=== PATIENT | female | born 1955 | race Caucasian/White ===

== ENCOUNTER 2023-12-21 17:43 | Emergency (ER) | payer BC, SELFPAY ==
[2023-12-21 18:04] VITALS: BP 172/97; PULSE 100; RESP 18; TEMP 36.6; O2SAT 98
--- NOTE | 2023-12-21 18:26 | ED.URI ---
HPI - URI/Sore Throat General Chief Complaint: Upper Respiratory Infection Stated Complaint: Upper Respiratory Symptoms Time Seen by Provider: 12/21/23 18:26 Source: patient, RN notes reviewed and old records reviewed Mode of arrival: ambulatory Limitations: no limitations History of Present Illness HPI Narrative: 68-year-old female to [facility] for complaint of nasal congestion and nonproductive cough for 3 days and right ear pain radiating to right jaw that started this morning. Patient denies fever, nausea, vomiting, diarrhea. patient has attempted to treat at with qfck-pox-xjmrbtz medications without relief. Patient endorses that she has always taken an vkfx-ajd-wrfyrdf allergy medication daily and that she recently stopped. Patient able to tolerate fluids by mouth. Related Data Home Medications Medication Instructions Recorded Confirmed prednisone 1 mg tablet 1 mg PO DAILY 12/21/23 12/21/23 Allergies Allergy/AdvReac Type Severity Reaction Status Date / Time aspirin Allergy Itching Verified 12/21/23 18:08 Penicillins Allergy Unknown Verified 12/21/23 18:08 Review of Systems Review of Systems: All systems reviewed & are unremarkable except as noted in HPI and below Constitutional: Constitutional: Reports as per HPI, Denies body ache(s), Denies chills and Denies fever(s) Eyes: Eyes: Reports no additional eye complaints ENT: Reports as per HPI, Reports otalgia ( Right), Reports facial pain ( right; radiating from here) and Reports nasal congestion Cardiovascular: Cardiovascular: Reports no additional cardiovascular complaints, Denies chest pain and Denies dyspnea Respiratory: Respiratory: Reports no additional respiratory complaints, Reports cough ( nonproductive per patient) and Denies dyspnea Musculoskeletal: Musculoskeletal: Reports no additional musculoskeletal complaints Neurologic: Reports system reviewed and no additional complaints, except as documented Psychiatric: Psychiatric: Reports no additional psychiatric complaints PMFSH Comments At the time of my signature, I reviewed and agree with the nursing past medical, surgical, social, and family history. There is no relevant family history pertinent to the patient complaint. Exam Const: General: cooperative, healthy appearing, comfortable, no acute distress, alert and well nourished Nutritional Appearance: well nourished Orientation/consciousness: patient oriented x3 Limitations: no limitations HENMT: Head: normal to inspection Ears: external ears normal and TM abnormal with fluid behind the TM on the right and retracted on the right Face/Nose/Sinus: Normal external nose present, Normal nares present, normal facial exam, No erythema and No edema Face and sinus: normal facial exam, no erythema and no edema Mouth: Yes Normal oral and palatal mucosa present Throat: posterior oropharynx abnormal erythema and postnasal drainage Eyes: General: appearance normal, both eyes and all related structures Neck: Neck: normal visual inspection, full ROM and no meningeal signs Lymphatic: no lymphadenopathy noted and no lymphedema noted Chest: Chest palpation & inspection: normal inspection of the chest Resp: Effort & Inspection: normal respiratory effort and able to speak in complete sentences Auscultation: clear to auscultation bilaterally Cardio: Jugular venous distension: no JVD Rate: regular rate Rhythm: regular rhythm Back/Spine/Pelvis: Cervical Spine: cervical ROM normal Skin: General skin exam: normal color, no rashes or lesions noted and turgor normal Neuro: General: patient oriented x3, gait normal, moves all extremities and no meningeal signs Speech: normal speech Gait exam (Neuro): Normal gait present Extrem: General: normal to inspection, full ROM and capillary refill normal Psych: Appearance: grossly normal and well kempt Course Course Emergency Course: Some parts of this dictation were generated by voice recognition softw
== END 2023-12-21 18:42 | disposition home or self-care (01) ==
PROVIDERS: Emergency Provider Nurse Practitioner Family
DX: H66.91 Otitis media, unspecified, right ear (principal)
CPT/HCPCS: 99213; G0463

== ENCOUNTER 2024-08-05 12:55 | Outpatient (CLI) | payer BC, SELFPAY ==
--- NOTE | ~2024-08-05 | CT_ITS ---
EXAMINATION:CT diagnostic chest wo con DATE: 08/05/2024 13:25 INDICATION: Solitary lung nodule. TECHNIQUE: Computed tomography (CT) of the chest was performed without intravenous contrast. Automate d exposure control and iterative reconstruction technique were employed. The dose-length product (DLP ) was 61.92 mGy-cm. COMPARISON: None. FINDINGS: There is mild emphysema. A calcified left lung nodule is consistent with old granulomatous disease. There is a 9 mm part-solid nodule at the margin of a pneumatocele in right lower lobe. No pl eural effusion. The heart size is normal. There are coronary artery calcifications. No pericardial ef fusion. Breast implants are noted. There is severe cervical spondylosis and mild thoracic spondylosis . IMPRESSION: 1. 9 mm part-solid nodule at the margin of a pneumatocele in right lower lobe suspicious for primary bronchogenic carcinoma. Noncontrast low-dose chest CT is recommended in 3 months. Reviewed, dictated and finalized at location A. ITE EXTERMINATOR IMPRESSION: 1. 9 mm part-solid nodule at the margin of a pneumatocele in right lower lobe s uspicious for primary bronchogenic carcinoma. Noncontrast low-dose chest CT is recommended in 3 months.
== END 2024-08-05 12:56 | disposition home or self-care (01) ==
PROVIDERS: PCP Emergency Medicine; Visit Provider Emergency Medicine
DX: R91.1 Solitary pulmonary nodule (principal)
CPT/HCPCS: 71250

== ENCOUNTER 2024-09-01 10:41 | Outpatient (CLI) | payer BC, SELFPAY ==
--- NOTE | ~2024-09-01 | PE_ITS ---
EXAMINATION: PET skull to mid thigh DATE: 09/01/2024 13:20 INDICATION: Lung nodule. TECHNIQUE: Blood glucose level was 160 mg/dL. 9.838 mCi of 18-fluorodeoxyglucose (18-FDG) was adminis tered i.v. Low dose computed tomography (CT) images were acquired from the base of the brain to the p roximal thighs for attenuation correction and anatomic localization. Automated exposure control was e mployed. Dose-length product (DLP) was 805 mGy-cm. Positron emission tomography (PET) images were acq uired in the same distribution. COMPARISON: Chest CT 08/05/2024 FINDINGS: Head/neck: There are no pathologically enlarged lymph nodes. Chest: There is mild emphysema. A calcified left lung nodule is consistent with old granulomatous dis ease. There is a pneumatocele in right lower lobe with 9 mm part-solid nodule at its margin without i ncreased activity. No pleural effusion. The heart size is normal. There are coronary artery calcifica tions. No pericardial effusion. Breast implants are noted. Abdomen/pelvis/proximal thighs: The liver, gallbladder, spleen, pancreas, adrenal glands, and kidneys are normal. There are no dilated loops of bowel. The appendix is normal. There is diverticulosis of the colon without evidence of diverticulitis. There are no pathologically enlarged lymph nodes. There is no free intraperitoneal fluid. There is no osseous malignancy. IMPRESSION: 1. 9 mm part-solid nodule without increased activity at the margin of a pneumatocele in right lower lobe, probably benign. Noncontrast low-dose chest CT is recommended in 6 months. Reviewed, dictated and finalized at location A. IN EXTERMINATOR IMPRESSION: 1. 9 mm part-solid nodule without increased activity at the margin of a pneuma tocele in right lower lobe, probably benign. Noncontrast low-dose chest CT is r ecommended in 6 months.
[2024-09-01 11:06] LABS: Glucose Point of Care 160 mg/dl (65-105)
== END 2024-09-01 10:42 | disposition home or self-care (01) ==
PROVIDERS: PCP Emergency Medicine; Visit Provider Internal Medicine Hematology & Oncology
DX: R91.1 Solitary pulmonary nodule (principal)
CPT/HCPCS: 78815; A9552

== ENCOUNTER 2025-01-17 16:32 | Emergency (ER) | payer BC, SELFPAY ==
--- NOTE | ~2025-01-17 | CT_ITS ---
EXAMINATION: CTA chest PE protocol DATE: 01/17/2025 21:18 CDT INDICATION: Vertigo and chest pain TECHNIQUE: Computed tomographic angiography (CTA) of the chest was performed with 100 mL Omnipaque-35 0 intravenous contrast. The dose-length product was 242.52 mGy-cm. Maximum intensity projection 3D-re constructions of the aorta and other arteries were constructed by the technologist on a separate work station. COMPARISON: None. Reference is made to a noncontrast enhanced chest CT dated 08/05/2024 as well as a PET/CT, dated 09/01/2024 FINDINGS/OBSERVATIONS: PULMONARY ARTERIES: No filling defect is identified within the main or proximal pulmonary artery. The main pulmonary artery is not enlarged. THORACIC AORTA: No aneurysmal dilatation or dissection is present. The great vessels are intact. No inflammatory change surrounds the thoracic aorta. LUNGS: Interval development of innumerable bilateral pulmonary nodules, ranging from solid to part so lid to groundglass. Redemonstration of the 9 mm heart solid nodule at the margin of the pneumatocele in the right lower l obe, now measuring 12.2 x 10 mm. MEDIASTINUM: No morphologically suspicious or pathologically enlarged lymph nodes are identified with in the mediastinum or bilateral axilla. BONES OF THE CHEST: No acute fracture. No significant degenerative disease. No lytic or blastic lesions. HEART: The heart is of normal size, without pericardial effusion. IMPRESSION: No pulmonary embolus. No thoracic aortic dissection. Innumerable pulmonary nodules within the chest, which may be related to patient's temporal arteritis, for which follow-up as per Fleischner guidelines is recommended (PET/CT, versus follow-up examinatio n in 3 months). Reviewed, dictated and finalized at location A. IMPRESSION: No pulmonary embolus. No thoracic aortic dissection. Innumerable pulmonary nodules within the chest, which may be related to patient 's temporal arteritis, for which follow-up as per Fleischner guidelines is isma mmended (PET/CT, versus follow-up examination in 3 months).
--- NOTE | ~2025-01-17 | CT_ITS ---
History: Vertigo PROCEDURE: CT head without contrast. COMPARISON: None TECHNIQUE: Axial imaging of the head performed from the skull base to the vertex without IV contrast. Sagittal a nd coronal reformations obtained. DLP: 681 mGy-cm FINDINGS: The ventricles are normal in size, shape and position. There is no mass, mass effect or midline shift. There is no abnormal extra-axial fluid collection or intracranial hemorrhage. Visualized paranasal sinuses are clear. The mastoid air cells are well aerated. No acute displaced fractures within the overlying cranium. Impression: No acute intracranial hemorrhage or suspicious mass effect. Reviewed, dictated and finalized at location A. Impression: No acute intracranial hemorrhage or suspicious mass effect.
--- NOTE | ~2025-01-17 | XR_ITS ---
EXAMINATION: XR chest 2V Exam Date/Time: 01/17/2025 16:53 CDT HISTORY: chest pain Comparison: CT chest 08/05/2024. RESULT: Lines, tubes, and devices: None. Lungs and pleura: 5.9 cm pneumatocele in the right lower lobe, with peripheral thickening along its lateral margin, measuring up to 4 mm in thickness. Discoid atelectasis/scarring in the peripheral rig ht lower lung. Calcified granuloma in the left upper lung. Cardiomediastinal silhouette: Stable. Other: No acute osseous or upper abdominal finding. IMPRESSION: 5.9 cm right lower lobe pneumatocele with increased soft tissue density thickening along its lateral margin, concerning for neoplastic disease. Recommend CT of the chest with contrast for further evalua tion Reviewed, dictated and finalized at location K. IMPRESSION: 5.9 cm right lower lobe pneumatocele with increased soft tissue density thicken ing along its lateral margin, concerning for neoplastic disease. Recommend CT o f the chest with contrast for further evaluation
--- OUTSIDE RECORDS SUMMARY | 2025-01-17 16:36 | XMS_ITS ---
Author Organization [facility] shiraz Address [address] [place] [address] Care Team Providers Care Topstitcher Zigzag Name Role Phone Rubin CABA, Belkis Primary Care Provider Unavaila Sarai Srivastava Unavailable [phone] Belkis Conklin Unavailable Unavailable Allergies Allergen (clinical drug ingredient) Drug/Non Drug Allergy documented on EMR Reaction Allergy Type Onset Date Status aspirin Aspirin Unknown Drug Allergy 11/09/2018 Active Substance with penicillin structure and antibacterial mechanism of action (substance) Penicillins Unknown Drug Allergy 11/09/2018 Active Results Component Value Reference Range Notes C Reactive Protein Reviewed date:07/13/2024 10:04:40 PM Interpretation: Performing Lab:[facility] , [address] [place] [address]. [facility] [address] Notes/Report: C-Reactive Protein 10.7 <=10.0 mg/L CBC w auto diff Reviewed date:07/13/2024 10:04:15 PM Interpretation:Lab Result Generalized Performing Lab:[facility] , [address] [place] [address]. [facility] [address] Notes/Report: WBC 8.4 3.8-9.9 K/cumm Hgb 16.4 11.9-15.5 g/dL Hct 49.1 35.6-45.5 % Platelet Ct 243 150-400 K/cumm MPV 9.6 9.1-12.3 fL RBC 4.81 3.90-5.20 M/cumm MCV 102.1 81.3-96.4 fL MCH 34.1 27.1-33.3 pg MCHC 33.4 32.3-35.7 g/dL RDW CV 12.1 11.1-14.9 % RDW SD 45.9 35.7-48.1 fL NRBC Abs Auto 0.00 0.00-0.01 K/cumm Comprehensive metabolic pane l (CMP) Reviewed date:07/13/2024 10:04:15 PM Interpretation:Lab Result Generalized Performing Lab:[facility] , [address] [place] [address]. [place] [address] Notes/Report: Sodium 142 135-145 mmol/L Plasma Potassium 4.2 3.3-4.9 mmol/L Chloride 102 97-110 mmol/L Total CO2 26 22-32 mmol/L Anion Gap 14 2-15 mmol/L BUN 8 6-25 mg/dL Creatinine 0.89 0.60-1.10 mg/dL Glucose 142 70-199 mg/dL Interpretive Data Fasting glucose >/= 126 mg/dl is diagnostic for diabetes. Fasting is defined as no caloric intake for at least 8 hours. Fasting glucose between 100 mg/dl to 125 mg/dl is diagnostic of prediabetes. In a patient with classic symptoms of hyperglycemia or hyperglycemic crisis, a random glucose >/= 200 mg/dl is diagnostic for diabetes. In the absence of unequivocal hyperglycemia, results should be confirmed by repeat testing. The classification and Diagnosis of Diabetes Diabetes Care 2021; 46: S19-S40. Current interpretive data was last revised 2022. Total Calcium 10.1 8.5-10.3 mg/dL Total Bilirubin 0.8 0.1-1.2 mg/dL Plasma Total Protein 7.4 6.5-8.5 g/dL Albumin 4.9 3.5-5.0 g/dL Alkaline Phosphatase 79 40-130 Units/L ALT 22 7-45 Units/L AST 23 10-45 Units/L Sed Rate Reviewed date:07/13/2024 10:04:40 PM Interpretation: Performing Lab:[facility] , [facility] [place] [address] Notes/Report: ESR 7 1-30 mm/hr REASON FOR VISIT yd,f/u,cc, GCA Medications Medication SIG (Take, Route, Fr equency, Duration) Notes Start Date End Date Status predniSONE 10 MG 1 Orally Once a day for 30 days Active ZyrTEC 10 MG 1 tablet Orally Once a day for 30 day(s) Active Problems Problem Type SNOMED Code ICD Code Onset Dates Problem Status W/U Status Risk Notes Problem GCA (giant cell arteritis) (M31.6) Active confirmed Vital Signs Temperature 98.2 degrees Fahrenheit 07/13/20 24 Blood pressure systolic 118 mm Hg 07/13/20 24 Blood pressure diastolic 74 mm Hg 024 Heart Rate 107 /min 07/13/2024 Height 65 in 07/13/2024 Weight 143.1 lbs 07/13/2024 BMI 23.81 kg/m2 07/13/2024 Oximetry 93 % 07/13/2024 Height-cm 165.1 cm 07/13/2024 Weight-kg 64.9 kg 07/13/2024 Encounters Encounter Location Date Provider Diagnosis [facility] [address] [place] [address] 07/13/2024 Sarai Nguyen GCA (giant cell arteritis) M31.6 and Osteopenia, unspecified location M85.80 Assessments Encounter Date Diagnosis (ICD Code) Assessment Notes Treatment Notes Treatment Clinical Notes Section Notes 07/13/2024 GCA (giant cell arteritis) (ICD-10 - M31.6) mildly symptomatic, check labs, will decide on the dosage of prednisone, refer to Dr. Amos for eye exam, advised to call Dr. Stanton and schedule appt as a new patient (primary care) 07/13/2024 Osteopenia, unspecified location (ICD-10 - M85.80) mildly symptomatic, check labs, will decide on the dosage of prednisone, refer to Dr. Amos for eye exam, advised to call Dr. Stanton and schedule appt as a new patient (primary care) Plan Of Treatment Next Appt Details Follow Up: 4 Weeks, Reason: Progress Notes * Jovanni MAXWELLOB:1955 (69 yo F)Acc No.[id number]:07/13/2024 Progress Notes Patient: Raina THOMAS Provider: Sanjiv NGUYEN MD :1955 A ge:69 Y S ex:Female Date:07/13/2024 Address:[address] [place] [address], [place] [address] Pcp:Belkis Conklin MD Subjective: * Chief Complaints: * Y d,f/u,ccGCA * HPI: G eneral Follow up: last seen in 02/2024, on prednisone 10mg/day for 2 to weeks, R pentecostal area a little tender today, no jaw pain, has some vision problem, cannot see as well as before, has not seen eye doctor for over a year. stopped arava due to paresthesia had right temporal artery biopsy done on 12/13/[address] Carlson pathology: marked intimal thickening with disruption of internal elastic lamina and scan chronic inflammation suggesting healing phase of temporal arteritis 01/22/2024, ESR and CRP normal DEXA 12/2020 - osteopenia, T score -2.1 at left fem neck, forgets taking Fosamax, takes calcium or vit D, walks a lot at work off metformin sister: PMR. * ROS: G eneral / Constitutional: Patient denies f lora, chills. P atient complains of?fatigue. M usculoskeletal: Patient complains of s ee HPI. S kin: Patient denies r daniel. * Medical History: * Surgical History: samantha ventura, Date of Procedure: 1999; 2018-11-09 * Hospitalization/Major Diagno stic Procedure: * Family History: F ather: Parkinsonism, Primary . * Social History: M igrated Social History: M igrated Social History: :: 2 Children , Exercise :: Active but no formal exercise :: note : active at work , Marital Status :: , Substance Use :: Alcohol :: Current some day :: note : socially a few drinks a weekUse status used: Current some day , Substance Use :: Denies ETOH use , Substance Use :: Denies illicit substance abuse , Substance Use :: Tobacco :: Current every day :: note ::: Quantity :: 10cigs/day. * Medications: T akingpredniSONE 10 MG Tablet 1 Orally Once a day ZyrTEC 10 MG Tablet Chewable 1 tablet Orally Once a day Medication List reviewed and reconciled with the patientTaking predniSONE 10 MG Tablet 1 Orally Once a day Taking ZyrTEC 10 MG Tablet Chewable 1 tablet Orally Once a day Medication List reviewed and reconciled with the patient * Allergies: A spirin: Allergy - Onset Date 11/09/2018Penicillins: Allergy - Onset Date 11/09/2018no[Allergies Verified] Objective: * Vitals: B P:118/74mm Hg, HR:107/min, Temp:98.2F, Oxygen sat %:93%, Wt:143.1lbs, Wt- k.9kg, Ht:65in, Ht-cm:165.1cm, BMI:23.81Index, Body Surface Area:1.73. * Examination: G eneral Examination: General appearance: a lert, well-nourished and in no acute distress. Head: n ormocephalic, atraumatic. Eyes: n ormal. Skin: n o rash. Lungs: r espiratory effort normal. N eurology: Speech: n ormal. P sychiatry: Affect / mood: a ppropriate. R heumatology: R pentecostal and L pentecostal mildly tender. Assessment: * Assessment: 1. G CA (giant cell arteritis) - M31.6 (Primary) 2 . O steopenia, unspecified location - M85.80 mildly symptomatic, check la bs, will decide on the dosage of prednisone, refer to Dr. Amos for eye exam, advised to call Dr. Stanton and schedule appt as a new patient (primary care) Plan: * Treatment: Value Reference Range C RP 10.7 H <=10.0 - mg/L * This lab was reviewed by Mary Nguyen on 07/13/2024 at 22:04 PM CDT ?LAB: CBC w auto diff ?LAB: Comprehensive metabolic panel (CMP) ?LAB: Sed Rate* Value Reference Range E SR 7 1-30 - mm/hr * This lab was reviewed by Mary Nguyen on 07/13/2024 at 22:04 PM CDT * Procedure Codes: * Follow Up: 4 Weeks * Billing Information: * Visit Code: 66401 Office Visit, Est Pt., Level 4. * Procedure Codes: * Sign off status: Completed true * Provider: Sanjiv NGUYEN MD Date: Generated for Laura gaines/Seema/Juan Pablo on: 01/17/2025 04:36 PM CDT History and Physical Notes * HPI (History of Present Illness) Category Sub-Category Detail Notes Category Not es General Follow up last seen in 02/2024, on prednisone 10mg/day for 2 to weeks, R pentecostal area a little tender today, no jaw pain, has some vision problem, cannot see as well as before, has not seen eye doctor for over a year. stopped arava due to paresthesia had right temporal artery biopsy done on 12/13/[address] Carlson pathology: marked intimal thickening with disruption of internal elastic lamina and scan chronic inflammation suggesting healing phase of temporal arteritis 01/22/2024, ESR and CRP normal DEXA 12/2020 - osteopenia, T score -2.1 at left fem neck, forgets taking Fosamax, takes calcium or vit D, walks a lot at work off metformin sister: PMR Examination Category Sub-Category Detail Notes Category Not es Rheumatology R pentecostal and L pentecostal mildly tender Neurology Speech: normal Psychiatry Affect / mood: appropriate General Examination General appearance: alert, w ell-nourished and in no acute distress Head: normocephalic, atrau matic Eyes: normal Lungs: respiratory effort n ormal Skin: no rash
--- OUTSIDE RECORDS SUMMARY | 2025-01-17 16:36 | XMS_ITS | Encounter Summary ---
Author Organization [facility] Address [address] [place] [address] Phone Care Team Providers Care Nuclear Instructor Name Role Phone Alejandro Stanton Primary Care Provider [phone] Encounter Details Date Type Department Care Team (Late st Contact Info) Description 10/21/2024 Telephone [facility] [address] [place] [address] Josue Bangura MD [address] [facility] [address] [place] [address] Social History Tobacco Use Types Packs/Day Years Used Date Smoking Tobacco: Every Day Cigarettes Smokeless Tobacco: Never Alcohol Use Standard Drinks/Week Comments Yes 7 (1 standard drink = 0.6 oz pur e alcohol) Comments Unknown Sex and Gender Information Value Date Recorded Sex Assigned at Not on file Legal Sex Female 9:18 PM CDT Gender Identity Not on file Sexual Orientation Not on file documented as of this encounter Plan of Treatment Not on file documented as of this encounter Visit Diagnoses Not on filedocumented in this encounter Care Teams Nuclear Instructor Relationship Specialty Start Date End Date Alejandro Stanton [address] [place] [address] PCP - General Family Medicine 08/15/24 documented as of this encounter
--- OUTSIDE RECORDS SUMMARY | 2025-01-17 16:36 | XMS_ITS | Continuity of Care Document ---
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 Name Role Phone Alejandro Stanton MD Unavailable Unavailable Allergies, Adverse Reactions, Alerts Substance Reaction Status Criticality PENICILLIN Active No Information Medications Medication Instructions Dosage Effective Dates (start - stop) Status Comments Crestor 20 mg tablet take 1 tablet by or al route every day 20 MG - Active prednisone 5 mg tablet take 1 tablet by oral route every day 5 MG - Active Breztri Aerosphere 160 mcg-9mcg-4.8mcg/actu ation HFA aerosol inhaler inhale 2 puff by inhalation route 2 times every day in the morning and evening 2.00 puff - Active Procedures Procedure Date OFFICE/OUTPATIENT VISIT, EST OFFICE/OUTPATIENT VISIT, EST OFFICE/OUTPATIENT VISIT, EST PREV VISIT, NEW, 65 & OVER OFFICE/OUTPATIENT VISIT, NEW Advance Directives Directive Yes / No Effective Date File Name No Information Encounters Encounter Description Practice Location Reason(s) For Visit Diagnoses Date Provider Providers Copied on Encounter [facility], [address], [place], [place], [id number], [place] tel:[phone] [facility] dizziness1 (chief complaint) No Information Maximino Allen. [address], [place], [place], [id number] , [place]. tel:[phone] OFFICE/OUTPA TIENT VISIT, EST [facility], [address], [place], [place], [id number], tel:[phone] [facility] HLP (chief complaint) iron (chief complaint) glucose1 (chief complaint) COPD1 (chief complaint) Mixed hyperlipidemiaCentr ilobular emphysemaHyperglyce miaSecondary polycythemiaDisorde r of iron metabolism, unspecifiedAbnormal red-cell morphology Dec-0 5 Maximino Allen. [address], [place], [place], [id number] , [place]. tel:[phone] OFFICE/OUTPA TIENT VISIT, [facility], [address], [place], [place], [id number], tel:[phone] [facility] TA1 (chief complaint) lung nodule1 (chief complaint) CAD (chief complaint) Atherosclerotic heart disease of [place] coronary artery without angina pectorisCentrilobul ar emphysemaSolitary lung noduleOther giant cell arteritis Nov-2 5 Maximino Allen. [address], [place], [place], [id number] , [place]. tel:[phone] OFFICE/OUTPA TIENT VISIT, [facility], [address], [place], [place], [address], [place] tel:[phone] [facility] COPD1 (chief complaint) ffatigue1 (chief complaint) sinus1 (chief complaint) TA (chief complaint) FatigueSolitary lung noduleOther giant cell arteritisCentrilobu lar emphysemaAnosmia Mar-0 - 5 Maximino Allen. [address], [place], [place], [address] , [place]. tel:[phone] PREV VISIT, NEW, 65 & OVER [facility], [address], [place], [place], [id number], [place] tel:[phone] [facility] physical (chief complaint) Encounter for general adult medical exam w abnormal findingsOther giant cell arteritisChronic sinusitisFatigueSol itary lung noduleAnosmia Nov-0 - 4 Maximino Allen. [address], [place], [place], [id number] , [place]. tel:[phone] Family History Family Member Type Diagnosis Age At Onset Mother Problem CAD and stroke 65 Mother Problem 70s sepsis Sister Problem dementia 75 Father Problem of 72 alzheimer disease Payers Payer name Insurance type Covered alliance party ID Pritesh garza(vipin) [facility] [id number] Social History Type Description Quantity Date Captured Comments Alcohol Use Details Caffeine Use Details Unknown Tobacco Use Status Moderate cigarette s moker (10-19 cigs/day) Smoking Status Heavy tobacco smoker Sex Female Vital Signs Date / Time: Height Weight BMI Pulse Rate Blood Pressure Temperature Respiratory Rate Body Surface Area Head Circumference BMI percentile Pulse Ox Inhaled Ox 2:57 PM 64.00 in 143.60 lbs 24.6 5 kg/m eter (2) 110 /min 150/88 mm[Hg] 97.5 F 16 /min Chief Complaint And Reason For Visit From encounter dated '01/17/2025 14:49'. dizziness1 (chief complaint) Plan Of Treatment Date Type Action Status Referral Ordered: Hematology (related to Solitary lung nodule) ordered Referral Ordered: Otolaryngology (related to Chronic sinusitis) ordered Referral Ordered: Ophthalmology (related to Encounter for general adult medical exam w abnormal findings) ordered Referral Ordered: Referrals: Hematology. Evaluate and treat ordered Referral Ordered: CT THORAX W/O DYE ordered Referral Ordered: DXA BONE DENSITY, AXIAL ordered Referral Ordered: MAMMOGRAM, SCREENING ordered Referral Ordered: Referrals: Otolaryngology. Evaluate and treat ordered Referral Ordered: CT MAXILLOFACIAL W/O DYE (SINUSES) SF ordered Referral Ordered: COLONOSCOPY AND BIOPSY ordered Referral Ordered: Referrals: Ophthalmology. Evaluate and treat ordered History Of Present Illness Encounter Date Complaint History Of Prese nt Illness dizziness1 HLP Pt has HLP Pt gaines s CAD on chest ct .Pt saw cardiology and was told to start statin if lipid is high Pt denies any chest pain iron Pt has high iron and polycythemia. Pt has high b12 Pt does take b12 supplement Pt has low D Pt has not done bone density yet. Pt denies any snoring or any difficulty with sleeping Pt has high MCV glucose1 Pt has high gluc ose Pt denies any polyuria ,polydipsia. 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 Pt started breztri and she is doing well Pt has not felt sob since starting breztri TA1 Pt has temporal arteritis. Pt has headache. pt denies any vision change. pt is seeing rheumatology and she is on chronic low dose steroid. Pt has not seen Dr. Gonzalez for a while and she is out of prednisone Pt denies any recurrent headache or any vision change CAD Pt has coronary artery calcification on CT scan. Pt denies any chest pain Pt has fouzia with cardiology next week. lung nodule1 Pt has lung nodu le. Pt had PET scan done 4 months ago and she keeps getting call from oncology about CT scan. Pt does feel sob Pt has not tried breztri yet. Pt denies any hemoptysis. COPD1 Pt is heavy smok er and she feels sob frequently pt was diagnosed with COPD several years ago Pt feels frequent sob. Pt also has suspicious lung nodule and she is seeing hematology and she is being monitored. Pt denies any hemoptysis, cough TA Pt has history o f right temporal artery arteritis. Pt denies any vision loss or headache Pt is on chronic prednisone per rheumatology sinus1 Pt has chronic s inus congestion and she is seeing ENT Pt had sinus CT which was benign Pt failed abx. 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 Pt is on astelin nasal spray by ENT> ffatigue1 Pt c/o chronic f atigue pt is not sure if she snores at night . physical Pt needs annual physical. Pt is long time smoker. Pt has history of lung nodule from last year Pt denies any hemoptysis, sob or cough. Pt also has chronic right temporal arteritis with history of headache with vision change and fatigue pt is on chronic prednisone for 4-5 years for TA. Pt states that most of her symptoms are well controlled with prednisone. Pt states that she tried to wean off steroid but she has right temporal headache when she has tries to get off steroid. Pt also has chronic sinus congestion with recurrent infection Pt wants to see ENT. Pt c/o acute sinus pain with pressure for the past several weeks. Pt also needs to see eye doctor due to worsening vision. Pt states that she feels worse and fatigue around 4-5 pm every day. Pt notices loss of taste and smell, worse with loss of taste x 4 weeks. Pt denies any other complaints Instructions Date Instruction Additional Infor mattimmy No Information Assessments Type Assessment Date No Information
--- OUTSIDE RECORDS SUMMARY | 2025-01-17 16:36 | XMS_ITS | Patient Health Record ---
Author Organization [facility] Address [address] [place] [address] Care Team Providers Care Inspector Eyeglass Name Role Phone Belkis Conklin MD Primary Care Provider Unavaila Sarai Srivastava Unavailable [phone] Belkis Conklin Unavailable Unavailable Allergies Allergen (clinical drug ingredient) Drug/Non Drug Allergy documented on EMR Reaction Allergy Type Onset Date Status aspirin Aspirin Unknown Drug Allergy 11/09/2018 Active Substance with penicillin structure and antibacterial mechanism of action (substance) Penicillins Unknown Drug Allergy 11/09/2018 Active Results Component Value Reference Range Notes CRP (C-REACTIVE PROTEIN) Reviewed date:01/24/2024 01:00:51 PM Interpretation: Performing Lab:[facility], [address] [place] [address], [address] Notes/Report: C-Reactive Protein 5.9 0.0-10.0 mg/L CMP(COMPREHENSIVE METABOLIC PANEL) Reviewed date:01/24/2024 01:00:51 PM Interpretation: Performing Lab:[facility], [address] [place] [address], [id number] Notes/Report: Sodium 139 133-146 mmol/L Potassium 4.2 3.5-5.1 mmol/L Chloride 102 98-107 mmol/L Carbon Dioxide 28 21-31 mmol/L Anion Gap 9 4-13 mmol/L Blood Urea Nitrogen 8 7-25 mg/dL Creatinine 0.88 0.60-1.30 mg/dL eGFRcr (CKD-EPI 2020) 72 >=60 mL/min/1.73 m2 Calcium 9.8 8.3-10.5 mg/dL Glucose 100 70-100 mg/dL Protein, Total 6.9 6.4-8.3 g/dL Albumin 4.7 3.5-5.0 g/dL ALT 11 9-43 units/L Alkaline Phosphatase 98 34-104 units/L AST 13 13-39 units/L Bilirubin, Total 0.8 0.2-1.2 mg/dL CBC W/DIFF Reviewed date:01/24/2024 01:00:51 PM Interpretation: Performing Lab:[facility], [address] [facility], [place], [address] Notes/Report: WBC 4.9 3.5-10.5 10'3/uL RBC 4.93 (Based on docume nted legal sex) 3.80-5.20 10'6/uL HGB 16.5 (Based on docume nted legal sex) 11.6-15.4 g/dL HCT 48.7 (Based on docume nted legal sex) 34.0-45.0 % MCV 98.8 80.0-99.0 fL MCH 33.5 27.0-34.0 pg MCHC 33.9 32.0-35.5 g/dL RDW 11.9 11.0-15.0 % PLT 231 150-400 10'3/uL MPV 9.9 8.8-12.1 fL NRBC's 0.0 0.0 % Absolute NRBCs 0.0 No reference ran ge established 10'3/uL Neutrophils 61.4 34.0-73.0 % Lymphocytes 28.7 15.0-50.0 % Monocytes 6.7 1.0-15.0 % Eosinophils 2.4 0.0-8.0 % Basophils 0.6 0.0-2.0 % Immature Granulocytes 0.2 No defined reference range % Absolute Neutrophils 3.0 1.5-8.0 10'3/uL Absolute Lymphocytes 1.4 1.0-4.0 10'3/uL Absolute Monocytes 0.3 0.2-1.0 10'3/uL Absolute Eosinophils 0.1 0.0-0.6 10'3/uL Absolute Basophils 0.0 0.0-0.3 10'3/uL Absolute Immature Granulocytes 0.0 0.00-0.10 10'3/uL 01/23/2024 7:10 AM: P indicates partial results on a panel have been released. Additional results will follow. 01/23/2024 7:10 AM: This result has been final verified. No additional or changed results are expected. SEDIMENTATION RATE, ESR Reviewed date:01/24/2024 01:00:51 PM Interpretation: Performing Lab:[facility], [address] [facility], [place], [address] Notes/Report: Sedimentation Rate 2 (Based on doc umented legal sex) 0-30 mm/Hour eGFR Reviewed date:07/13/2024 10:04:40 PM Interpretation: Performing Lab:[facility] , [address] [place] [address]. [facility] [address] Notes/Report: eGFR 71 >=60 mL/min/1.73 m2 Interpretive Data Reference Interval Normal >/= 90 mL/min/1.73m2 Mildly decreased* 60 - 89 mL/min/1.73m2 Mildly to moderately decreased 45 - 59 mL/min/1.73m2 Moderately to severely decreased 30 - 44 mL/min/1.73m2 Severely decreased 15 - 29 mL/min/1.73m2 Kidney Failure < 15 mL/min/1.73m2 *Relative to young adult level Estimated glomerular filtration rate is determined by the 2020 CKD-EPI equation recommended by the National Kidney Foundation (A Unifying Approach to GFR Estimation: Recommendations of the NKF-ASK Task Force on Reassessing the Inclusion of Race in Diagnosing Kidney Disease, JASN 2020). The CKD-EPI equation should not be used for patients with unstable renal function and has not been validated in children and those over 70. Current interpretive data was last reviewed 2021. Differential Automated Reviewed date:07/13/2024 10:04:40 PM Interpretation: Performing Lab:[facility] , [address] [place] [address]. [place] [address] Notes/Report: Neut Abs 6.7 1.5-6.5 K/cumm ImmGran Abs 0.0 0.0-0.1 K/cumm Lymphocyte Abs 1.2 0.8-3.3 K/cumm [place] Abs 0.4 0.2-0.8 K/cumm Eos Abs 0.1 0.0-0.5 K/cumm Baso Abs 0.1 0.0-0.1 K/cumm Neut Pct 80.0 Interpretive Data Percent cell count reference ranges are not reported, since discordance with absolute values may lead to misinterpretation of CBC data. Current Interpretive Data was last revised on 2017. ImmGran Pct 0.5 Interpretive Data Percent cell count reference ranges are not reported, since discordance with absolute values may lead to misinterpretation of CBC data. Current Interpretive Data was last revised on 2017. Lymph Pct 14.1 Interpretive Data Percent cell count reference ranges are not reported, since discordance with absolute values may lead to misinterpretation of CBC data. Current Interpretive Data was last revised on 2017. [place] Pct 4.2 Interpretive Data Percent cell count reference ranges are not reported, since discordance with absolute values may lead to misinterpretation of CBC data. Current Interpretive Data was last revised on 2017. Eos Pct 0.6 Interpretive Data Percent cell count reference ranges are not reported, since discordance with absolute values may lead to misinterpretation of CBC data. Current Interpretive Data was last revised on 2017. Baso Pct 0.6 Interpretive Data Percent cell count reference ranges are not reported, since discordance with absolute values may lead to misinterpretation of CBC data. Current Interpretive Data was last revised on 2017. Sed Rate Reviewed date:07/13/2024 10:04:40 PM Interpretation: Performing Lab:[facility] , [address] [place] [address]. [place] [address] Notes/Report: ESR 7 1-30 mm/hr Comprehensive metabolic pane l (CMP) Reviewed date:07/13/2024 10:04:15 PM Interpretation:Lab Result Generalized Performing Lab:[facility] , [address] [place] [address]. [place] [address] Notes/Report: Sodium 142 135-145 mmol/L Plasma Potassium [...] 22 7-45 Units/L AST 23 10-45 Units/L CBC w auto diff Reviewed date:07/13/2024 10:04:15 PM Interpretation:Lab Result Generalized Performing Lab:[facility] , [facility] [facility]. [facility] [address] Notes/Report: WBC 8.4 3.8-9.9 K/cumm Hgb 16.4 11.9-15.5 g/dL Hct 49.1 35.6-45.5 % Platelet Ct 243 150-400 K/cumm MPV 9.6 9.1-12.3 fL RBC 4.81 3.90-5.20 M/cumm MCV 102.1 81.3-96.4 fL MCH 34.1 27.1-33.3 pg MCHC 33.4 32.3-35.7 g/dL RDW CV 12.1 11.1-14.9 % RDW SD 45.9 35.7-48.1 fL NRBC Abs Auto 0.00 0.00-0.01 K/cumm C Reactive Protein Reviewed date:07/13/2024 10:04:40 PM Interpretation: Performing Lab:[facility] , [address] [facility]. [facility] [address] Notes/Report: C-Reactive Protein 10.7 <=10.0 mg/L Reason For Referral No Information Medications Medication SIG (Take, Route, Fr equency, [...] cell arteritis) (M31.6) Active confirmed Vital Signs Heart Rate 107 /min 07/13/2024 Temperature 98.2 degrees Fahrenheit 07/13/2024 Height-cm 165.1 cm 07/13/2024 Blood pressure diastolic 74 mm Hg 07/13/2024 Oximetry 93 % 07/13/2024 Weight-kg 64.9 kg 07/13/2024 Height 65 in 07/13/2024 Blood pressure systolic 118 mm Hg 07/13/2024 Weight 143.1 lbs 07/13/2024 BMI 23.81 kg/m2 07/13/2024 Encounters Encounter Location Date Provider Diagnosis [facility] [address] [place] [address] 01/22/2024 Sarai Du GCA (giant cell arteritis) M31.6 and Osteopenia, unspecified location M85.80 [facility] [address] [place] [address] 02/09/2024 Sarai Du GCA (giant cell arteritis) M31.6 and Osteopenia, unspecified location M85.80 [facility] [address] [place] [address] 03/07/2024 Sarai Du GCA (giant cell arteritis) M31.6 and Osteopenia, unspecified location M85.80 [facility] [address] [place] [address] 07/13/2024 Sarai Du GCA (giant cell arteritis) M31.6 and Osteopenia, unspecified location M85.80 [facility] [address] [place] [address] 02/04/2024 Sarai Du [facility] [address] [place] [address] 03/08/2024 Sarai Du [facility] [address] [place] [address] 04/25/2024 Sarai [facility] [address] [place] [address] 05/31/2024 Sarai Du [facility] [address] [place] [address] 07/29/2024 Sarai Gonzalez [facility] [address] [place] [address] 08/23/2024 Sarai Gonzalez Assessments Encounter Date Diagnosis (ICD Code) Assessment Notes Treatment Notes Treatment Clinical Notes Section Notes 01/22/2024 Osteopenia, unspecified location (ICD-10 - M85.80) recurrent headaches off prednisine, restart at 40mg/day, labs today, return in 3 weeks 01/22/2024 GCA (giant cell arteritis) (ICD-10 - M31.6) recurrent headaches off prednisine, restart at 40mg/day, labs today, return in 3 weeks 02/09/2024 GCA (giant cell arteritis) (ICD-10 - M31.6) decrease prednisone to 30mg/day for 2 weeks, then 20mg/day, return in 4 weeks 03/07/2024 GCA (giant cell arteritis) (ICD-10 - M31.6) mildly symptomatic, check labs, will decide on the dosage of prednisone, return in 1 month 07/13/2024 GCA (giant cell arteritis) (ICD-10 - [...] appt as a new patient (primary care) 03/07/2024 Osteopenia, unspecified location (ICD-10 - M85.80) mildly symptomatic, check labs, will decide on the dosage of prednisone, return in 1 month 02/09/2024 Osteopenia, unspecified location (ICD-10 - M85.80) decrease prednisone to 30mg/day for 2 weeks, then 20mg/day, return in 4 weeks Plan Of Treatment Pending Test Test Name Order Date CRP (C-REACTIVE PROTEIN) 03/07/2024 HEMOGLOBIN A1C 03/07/2024 SEDIMENTATION RATE, ESR 03/07/2024 Insurance Providers Payer Name Payer Address Payer Phone Subscriber Number Group Number Insured Name Patient Relationship to Insured Coverage Start Date Coverage End Date Bright [address] [place] [address] [id number] Raina Maxwell Self - patient is the insured [facility] [employer] [address] [address] [place] [address] [id number] Raina Maxwell Self - patient is the insured 0 Medical (General) History Medical History History ICD Code Allergy; Anemia; Emphysema; Surgical History Surgery Date(Month/Year) breast, Date of Procedure: 1999; 2018-10
--- OUTSIDE RECORDS SUMMARY | 2025-01-17 16:36 | XMS_ITS | Clinical Summary ---
Author Organization [facility] Address [address] [facility] [place] [address] Phone Care Team Providers Care Compensator Name Role Phone Belkis Conklin MD Primary Care Provider Unavailable Allergies Active Allergy Reactions Criticality Noted Date Comments Aspirin Itching Low 06/16/2014 Penicillins Other (See Comments) 06/16/2014 Unsure Medications OYSTER SHELL CALCIUM-VIT D3 500 mg(1,250mg) -200 unit tablet TAKE 1 TABLET BY MOUTH TWICE A DAY 3 9 Active cetirizine (ZyrTEC) 10 mg tablet Take 10 mg by mouth daily. Active predniSONE 1 mg tablet Take 2 mg by mouth daily. Active fluticasone propionate 50 mcg/actuation nasal spray,suspensio n Administer 2 Sprays in each nostril daily. Active Active Problems Problem Noted Date Diagnosed Date Mild intermittent asthma with exacerbation 01/29 Overview (01/29/2023): History of childhood asthma followed by seasonal asthma now triggered primarily by respiratory infections. Prediabetes 12/24/2022 Hyperlipidemia 11/10/2019 Hair loss 11/10/2019 Encounter for screening mamm ogram for malignant neoplasm of breast 11/10/2019 Osteopenia of multiple sites 05/26/2019 Overview (12/24/2022): Last bone density was in December 2018 with osteopenia and not at the threshold for medication. Polycythemia secondary to smoking 05/26/2019 Current chronic use of systemic steroids 019 Temporal arteritis 01/27/2019 Sinus pain 01/27/2019 Near syncope 01/27/2019 Leg paresthesia 01/27/2019 Vertigo 01/27/2019 Iron deficiency anemia 10/22/2018 CRP elevated 10/14/2018 Liver lesion 08/26/2018 Pelvic congestion 08/26/2018 Frequent headaches 08/02/2018 Nausea 08/02/2018 Rash 08/02/2018 Night sweats 08/02/2018 Tobacco use 06/28/2018 Thyroid nodule 06/28/2018 Other emphysema 06/28/2018 Overview (01/29/2023): Seen on imaging namely a CT scan in August 2022. Patient denies any shortness of breath or difficulties. She has a history of smoking and childhood asthma. Seasonal asthma 06/28/2018 Genital herpes 06/16/2014 Resolved Problems Problem Noted Date Diagnosed Date Resolved Date Dysuria 11/10/2019 12/24/2022 Hypercalcemia 05/26/2019 12/24/2022 Diabetes mellitus, new onset 05/26/2019 12/24/2022 Elevated BP without diagnosis of hypertension 01/28/20 19 12/24/2022 Chronic anemia 09/20/2018 05/26/2019 Weight loss 06/28/2018 01/27/2019 Encounters Date Type Department Care Team Description 11/21/2024 External Device Data [facility] ABSTRACTION Provider, Abstract 11/16/2024 External Device Data [facility] ABSTRACTION Provider, Abstract from Last 3 Months Immunizations Immunization Administration Dates Next Due (ADACEL/BOOSTRIX)(10 YR UP) TDAP VACCINE, 0.5ML, IM 12/19/2021 (PFIZER)(12 YR UP) COVID-19 VACCINE - EMERGENCY USE AUTHORIZATION, MRNA, [id number](PF) 30 MCG/0.3 ML IM SUSP 09/14/2021,01/01/2021,12/11/2020 (PNEUMOVAX 23)(50 YRS UP) PN EUMOCOCCAL POLYSACCHARIDE (PPV23) 0.5 ML, IM 11/10/2019 (PREVNAR 20)(6 WKS UP) PNEUM OCOCCAL CONJUGATE VACCINE 20-VALENT (PCV20), POLYSACCHARIDE [id number] CONJUGATE, ADJUVANT 0.5 ML (PF) IM 12/24/2022 INFLUENZA VACCINE QUADRIVALE NT 6 MOS UP CELL DERIVED PF IM 05/30/2020 INFLUENZA VACCINE QUADRIVALE NT 6 MOS UP PF IM 05/26/2019 Influenza Seasonal Unspecifi ed Formulation IM 06/14/2022,06/14/2021 Family History Medical History Relation Name Comments Healthy Father Heart Disease Mother Hypertension Mother Stroke Mother Cancer Other P uncle ? 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 Gender Identity Not on file Sexual Orientation Not on file Last Filed Vital Signs Vital Sign Reading Time Taken Comments Blood Pressure 110/80 01/29/2023 1:29 PM CDT Pulse 87 01/29/2023 1:29 PM CDT Temperature 36.9 C (98.5 F) 01/29/2023 1:29 PM CDT Respiratory Rate 8 11/12/2018 2:07 PM AMUSEMENT CENTRE MANAGER Oxygen Saturation 99% 01/29/2023 1:29 PM CDT Inhaled Oxygen Concentration - - Weight 63 kg (139 lb) 01/29/2023 1:29 PM CDT Height 162.6 cm (5' 4 ) 01/29/2023 1:29 PM CDT Body Mass Index 23.86 01/29/2023 1:29 PM CDT Plan of Treatment Health Maintenance Due Date Last Done Comments FIT-DNA Q 3 years 2002 Flex Sig/CT Colonography Q 5 years 2002 ZOSTER VACCINE (1 of 2) 2007 RSV VACCINE (60+ or ) (1 - Risk 60-74 years 1-dose series) 2017 FIT/FOBT Q 1 year 05/05/2017 05/05/2016, 06/16/2014 BREAST CANCER SCREENING 07/18/2023 07/18/20, 07/18/2022, 07/18/2022, Additional history exists OSTEOPOROSIS SCREENING 12/23/2023 12/22/2018 INFLUENZA VACCINE (#1) 2024 2, 06/14/2021, 05/30/2020, Additional history exists COVID-19 Vaccine (2023-2 5 season) 2024 09/14/2021, 09/11/2021, 01/01/2021, Additional history exists Preventative Visit- Commercial 09/14/2024 0 12/24/2022, 12/19/2021, 07/12/2019, Additional history exists COLORECTAL SCREENING 11/25/2028 11/25/2018, 11/26/19 19 Colorectal Cancer Screening 11/25/2028 DTAP/TDAP/TD VACCINES (2 - T d or Tdap) 12/20/2031 12/19/2021 Lung Cancer Screening Discontinued 08/25/2022 PNEUMOCOCCAL VACCINE 50+ YEARS Completed 12/24/2022 , 11/10/2019 Procedures Procedure Name Priority Date/Time Associated Diagnosis Comments CT LUNG SCREENING (LDCT BASELINE OR ANNUAL) Routine 08/25/2022 Tobacco use MAMMO SCREEN BILAT W OR WO CAD Routine 07/18/2022 Screening mammogram, encounter for XR DEXA BONE DENSITY AXIAL 1 OR MORE SITES Routine 12/22/2018 POC OCCULT BLOOD, IMMUNO, QUAL, STOOL Routine 05/05/2016 9:56 AM CDT Screening for malignant neoplasm of the rectum from Last 3 Months or Most Recently Relevant to Health Maintenance Results * CT LUNG SCREENING (LDCT BASELINE OR ANNUAL) (08/25/2022) Anatomical Region Laterality Modality Chest Computed Tomogra phy us Belkis Conklin MD CT ORDERABLES Final R esult * MAMMO SCREEN BILAT W OR WO CAD (07/18/2022) Anatomical Region Laterality Modality Breast Bilateral Mammography us Belkis Conklin MD MAMMO ORDERABLES Final Result * XR DEXA BONE DENSITY AXIAL 1 OR MORE SITES (12/22/2018) Anatomical Region Laterality Modality Other us Sarai Gonzalez MD DIAGNOSTIC IMAGING ORDERABLES Ed ited Result - Final * POC OCCULT BLOOD, IMMUNO, QUAL, STOOL (05/05/2016 9:56 AM CDT) OCCULT BLOOD, IMMUNOASSAY STOOL1 POC negative [facility] OCCULT BLOOD, IMMUNOASSAY STOOL2 POC [facility] OCCULT BLOOD, IMMUNOASSAY STOOL3 POC [facility] Stool specimen (specimen) STOOL SPECIMEN / Unknown 05/05/2016 9:56 AM CDT Sasha Mosher EGG AND SPICE MIXER POINT OF CARE TESTING Final Result [facility] from Last 3 Months or Most Recently Relevant to Health Maintenance Insurance [facility] BLUE ACCESS/TRUE BLUE PPO Care Teams Compensator Relationship Specialty Start Date End Date Belkis Conklin MD PCP - General Family Practice 08/09/18
--- OUTSIDE RECORDS SUMMARY | 2025-01-17 16:36 | XMS_ITS | Referral Summary ---
Author Organization [facility] Address [address] [place] [address] Care Team Providers Care Air Conditioner Installer Helper Name Role Phone Renita Mahmood MD Unavailable Sarai Gonzalez MD Unavailable Alejandro Stanton MD Primary Care Provider [phone] Encounters Date Type Department Care Team Description 11/21/2024 3:20 PM CDT Imaging Exam [facility] Ophthalmology [address] [place] [address] Outpatient Health [address] [place] [phone] 11/21/2024 3:10 PM CDT Imaging Exam [facility] Ophthalmology [address] [place] [address] Outpatient Health [address] [place] [phone] 11/21/2024 1:00 PM CDT Office Visit [facility] Ophthalmology [address] [place] [address] [phone] Hans Carter MD Giant cell arteritis syndrome (HCC) (Primary Dx) from Last 3 Months Allergies Active Allergy Reactions Criticality Noted Date Comments Aspirin Unknown 10/22/2018 Penicillins Unknown 10/22/2018 Medications calcium carbonate-vitam in D3 1,250mg (500mg elemental) - 5 mcg (200 units) per tablet Take 1 tablet by mouth 2 (two) times a day 9 Active cetirizine (ZyrTEC) 10 mg tablet Take 1 tablet (10 mg total) by mouth Active fluticasone propionate (FLONASE) 50 mcg/actuation nasal spray Administer 2 sprays into affected nostril(s) daily Active predniSONE (DELTASONE) 10 mg tablet 4 Active azelastine-flut icasone 137-50 mcg/spray spray,non-aeros ol Administer into affected nostril(s) Active budesonide-glyc opyr-formoterol (Breztri Aerosphere) 160-9-4.8 mcg/actuation inhaler Inhale 2 puffs every 12 hours 5 Active Active Problems Problem Noted Date Diagnosed Date Prediabetes 12/24/2022 Hair loss 11/10/2019 Current chronic use of systemic steroids 019 Osteopenia of multiple sites 05/26/2019 Overview (05/15/2023): Last bone density was in December 2018 with osteopenia and not at the threshold for medication. Polycythemia secondary to smoking 05/26/2019 Leg paresthesia 01/27/2019 Sinus pain 01/27/2019 Temporal arteritis 01/27/2019 Iron deficiency anemia 10/22/2018 CRP elevated 10/14/2018 Chronic anemia 09/20/2018 Frequent headaches 08/02/2018 Other emphysema 06/28/2018 Seasonal asthma 06/28/2018 Thyroid nodule 06/28/2018 Tobacco use 06/28/2018 Weight loss 06/28/2018 Resolved Problems Problem Noted Date Diagnosed Date Resolved Date Mild intermittent asthma with exacerbation 01/29/2023 11/21/2024 Overview (05/15/2023): History of childhood asthma followed by seasonal asthma now triggered primarily by respiratory infections. Hyperlipidemia 11/10/2019 11/21/2024 Near syncope 01/27/2019 11/21/2024 Vertigo 01/27/2019 11/21/2024 Vascular headache 12/09/2018 11/21/2024 Overview (12/09/2018): Added automatically from request for surgery [id number] Special screening for malign ant neoplasms, colon 10/22/2018 11/21/2024 Overview (12/10/2018): T-A; recall colonocsopy 5 years 2023 Liver lesion 08/26/2018 11/21/2024 Pelvic congestion 08/26/2018 11/21/2024 Nausea 08/02/2018 11/21/2024 Night sweats 08/02/2018 11/21/2024 Rash 08/02/2018 11/21/2024 Genital herpes 06/16/2014 11/21/2024 Immunizations Immunization Administration Dates Next Due Pfizer SARS-CoV-2 Monovalent Vaccination (12+ Yrs) PURPLE 01/01/2021,12/11/2020 Social History Tobacco Use Types Packs/Day Years Used Date Smoking Tobacco: Every Day Cigarettes Smokeless Tobacco: Never Tobacco Cessation:Ready to Q uit: Not Asked; Counseling Given: Not Answered Alcohol Use Standard Drinks/Week Comments Yes 3 (1 standard drink = 0.6 oz pur e alcohol) Comments No Sex and Gender Information Value Date Recorded Sex Assigned at Not on file Legal Sex Female 6:54 PM CDT Gender Identity Not on file Sexual Orientation Not on file Last Filed Vital Signs Vital Sign Reading Time Taken Comments Blood Pressure 128/82 05/05/2024 4:18 PM CDT Pulse 91 05/05/2024 4:18 PM CDT Temperature 36.1 C (96.9 F) 05/05/2024 4:18 PM CDT Respiratory Rate 16 05/05/2024 4:18 PM CDT Oxygen Saturation 98% 05/05/2024 4:18 PM CDT Inhaled Oxygen Concentration - - Weight 65.5 kg (144 lb 8 oz) 05/05/2024 4:18 PM CDT Height 165.1 cm (5' 5 ) 05/05/2024 4:18 PM CDT Body Mass Index 24.05 05/05/2024 4:18 PM CDT Plan of Treatment Not on file Procedures Procedure Name Priority Date/Time Associated Diagnosis Comments JOE VISUAL FIELD - OU - BOTH EYES Routine 11/21/2024 2:27 PM CDT Giant cell arteritis syndrome (HCC) OCT, OPTIC NERVE - OU - BOTH EYES Routine 11/21/2024 2:26 PM CDT Giant cell arteritis syndrome (HCC) OCT, RETINA - OU - BOTH EYES Routine 11/21/2024 2:26 PM CDT Giant cell arteritis syndrome (HCC) COLONOSCOPY 11/25/2018 10:21 AM CDT from Last 3 Months or Most Recently Relevant to Health Maintenance Results * Joe Visual Field - OU - Both Eyes (11/21/2024 2:27 PM CDT) Pattern Deviation OS 1.54 dB CONTINUUM Pattern Deviation OD 1.91 dB CONTINUUM Mean Deviation OS -1.45 dB CONTINUUM Mean Deviation OD -0.45 dB CONTINUUM Anatomical Region Laterality Modality Head Other Narrative 11/21/2024 5:58 PM CDT Right Eye Fixation was good. Cooperation was good. Reliability was good. Progression has no prior data. Foveal threshold was normal. Findings include normal observations, non-specific defects. Mean Deviation was -0.45 dB. Pattern Deviation was 1.91 dB. Left Eye Fixation was good. Cooperation was good. Reliability was good. Progression has no prior data. Foveal threshold was normal. Findings include normal observations, non-specific defects. Mean Deviation was -1.45 dB. Pattern Deviation was 1.54 dB. Notes Normal baseline harry Ana Roberts MD [facility] VISUAL FIELD Elizabeth l Result * OCT, Optic Nerve - OU - Both Eyes (11/21/2024 2:26 PM CDT) RNFL OS 75 micrometers CONTINUUM RNFL OD 81 micrometers CONTINUUM Anatomical Region Laterality Modality Head Other Narrative 11/21/2024 5:59 PM CDT Right Eye Reliability was good. Average RNFL thickness 81 micrometers. Left Eye Reliability was good. Average RNFL thickness 75 micrometers. Notes Borderline inferior RNFL sectoral thinning OD, sectoral thinning superior OS. However, no correlating GCC thinning. No pallor on clinical exam. Likely secondary to mild tilting. Baseline exam, no clinical significance Ana Roberts MD OPHTH TOMOGRAPHY Final Result * OCT, Retina - OU - Both Eyes (11/21/2024 2:26 PM CDT) Central Macular Thickness OS 269 mircometers CONTINUUM Central Macular Thickness OD 267 micrometers CONTINUUM Anatomical Region Laterality Modality Head Other Narrative 11/21/2024 5:59 PM CDT Right Eye Quality was good. Progression has no prior data. Findings include normal observations, normal foveal contour. Macular thickness was 267 micrometers. Left Eye Quality was good. Progression has no prior data. Findings include normal observations, normal foveal contour. Macular thickness was 269 mircometers. Notes Average ganglion cell layer (GCL) + inner plexiform layer (IPL) thickness: 76 um right eye (OD), 72 um left eye (OS) Normal GCC thickness both eyes (OU) us Ana Roberts MD OPHTH TOMOGRAPHY Final Result * COLONOSCOPY (11/25/2018 10:21 AM CDT) Anatomical Region Laterality Modality Other Narrative Procedure Note Haris Fenton MD - 11/25/2018 10:21 AM CDT ENDOSCOPY LAB Patient Name: Raina Maxwell Procedure Date: 11/25/2018 10:21 AM Admit Type: Outpatient Room: [facility] Date of : 1955 Instrument Name: [id number] Gender: Female Note Status: Finalized Procedure: Colonoscopy Indications: Screening for colorectal malignant neoplasm, This isthe patient's first colonoscopy Providers: Haris Fenton MD Referring MD: Medicines: Propofol per Anesthesia Complications: No immediate complications. Estimated Blood Loss: Estimated blood loss: none. Procedure: Pre-Anesthesia Assessment: - Patient identification and proposed procedure were verified prior to the procedure by the physician. The procedure was verified in the pre-procedure area. - The risks and benefits of the procedure and thesedation options and risks were discussed with the patient. All questions were answered and informed consent wasobtained. The benefits, risks and alternatives of the procedureand sedation were discussed and informed consent wasobtained. All questions were answered. Please refer to the signed informed consent document in the medical record. Thescope was passed under direct vision. The Colonoscope was introduced through the anus and advanced to the the terminal ileum. The colonoscopy was performed without difficulty. The patient tolerated the procedure well.The quality of the bowel preparation was evaluated usingthe BBPS ([place] Bowel Preparation Scale) with scores of: Right Colon = 3 (entire mucosa seen well with noresidual staining, small fragments of stool or opaque liquid), Transverse Colon = 3 (entire mucosa seen well with no residual staining, small fragments of stool or opaque liquid) and Left Colon = 3 (entire mucosa seen wellwith no residual staining, small fragments of stool oropaque liquid). The total BBPS score equals 9. The quality ofthe bowel preparation was excellent. The bowel preparation used was MoviPrep. Bowel prep was administered using a split dose. Findings: The terminal ileum appeared normal. A 5 mm polyp was found in the ascending colon. The polyp was sessile. The polyp was removed with a cold biopsy forceps. Resection and retrieval were complete. Three sessile polyps were found in the recto-sigmoid colon. Thepolyps were 3 to 5 mm in size. These polyps were removed with a cold biopsy forceps. Resection and retrieval were complete. Multiple small and large-mouthed diverticula were found in thesigmoid colon. Lauren-diverticular erythema was seen. The exam was otherwise without abnormality on direct and retroflexion views. Impression: - The examined portion of the ileum was normal. - One 5 mm polyp in the ascending colon, removed with a cold biopsy forceps. Resected and retrieved. - Three 3 to 5 mm polyps at the recto-sigmoid colon, removed with a cold biopsy forceps. Resected andretrieved. - Severe diverticulosis in the sigmoid colon. Lauren-diverticular erythema was seen. - The examination was otherwise normal on direct and retroflexion views. Recommendation: - [facility] The signs and symptoms of potential delayedcomplications were discussed with the patient. Return to normal activities tomorrow. Written discharge instructionswere provided to the patient. - Resume previous diet. - Continue present medications. - Await pathology results. - Pathology results will be sent to you by mail [email or web address] business days. Please call if you do not receivethese. - Repeat colonoscopy in 3 years for surveillance. - Return to endoscopist PRN. Attending Participation: I personally performed the entire procedure without the assistance ofa fellow, resident or ssn/ssbn assistant navigator. Electronically signed by Haris Fenton Haris Fenton MD 11/25/2018 11:10:12 AM Number of Addenda: 0 Note Initiated On: 11/25/2018 10:21 AM Haris Fenton MD ENDOSCOPY PROCEDURES Final Result from Last 3 Months or Most Recently Relevant to Health Maintenance Insurance [employer] OOS UGE ACCESS OOS UGE ACCESS OOS Advance Directives For more information, please contact: [phone] * Full Code (Latest Code Status on File) Date Activated Date Inactivated Comments 11/25/2018 9:49 AM 11/25/2018 3:38 PM Care Teams Air Conditioner Installer Helper Relationship Specialty Start Date End Date Renita Mahmood MD [address] [facility] [address] [place] [address] PCP - time study analyst Obstetrics and Gynecology 10/22/18 Alejandro Stanton MD [address] [place] [address] PCP - General Family Medicine 09/15/24 Sarai Gonzalez MD [address] [facility] [address] [place] [address] Referring Physician Rheumatology 12/20/18
--- OUTSIDE RECORDS SUMMARY | 2025-01-17 16:36 | XMS_ITS | Clinical Summary ---
Author Organization [facility] Address [address] [place] [address] Care Team Providers Care Medicaid Biller Name Role Phone Renita Mahmood MD Unavailable Sarai Gonzalez MD Unavailable Alejandro Stanton MD Primary Care Provider [phone] Allergies Active Allergy Reactions Criticality Noted Date [...] (12/09/2018): Added automatically from request for surgery [id number] Special screening for malign ant neoplasms, colon 10/22/2018 11/21/2024 Overview (12/10/2018): T-A; recall colonocsopy 5 years 2023 Liver lesion 08/26/2018 11/21/2024 Pelvic congestion 08/26/2018 11/21/2024 Nausea 08/02/2018 11/21/2024 Night sweats 08/02/2018 11/21/2024 Rash 08/02/2018 11/21/2024 Genital herpes 06/16/2014 11/21/2024 Encounters Date Type Department Care Team Description 11/21/2024 3:20 PM CDT Imaging Exam [facility] 6th [place] [address] 11/21/2024 3:10 PM CDT Imaging Exam [facility] [address] [facility] [address] [place] [address] 11/21/2024 1:00 PM CDT Office Visit [facility] [address] [facility] [address] [place] [address] Hans Carter MD Giant cell arteritis syndrome (HCC) (Primary Dx) from Last 3 Months Immunizations Immunization Administration Dates Next Due Pfizer SARS-CoV-2 Monovalent Vaccination (12+ Yrs) PURPLE 01/01/2021,12/11/2020 Surgical History Surgery Date Site/Laterality Comments TUBAL LIGATION TONSILLECTOMY COLONOSCOPY 11/25/2018 T-A; recall colonoscopy 2023 BREAST SURGERY TEMPORAL ARTERY BIOPSY / LIGATION 12/13/2018 Right per path report: temporal arteritis Medical History Medical History Date Comments Emphysema of lung (HCC) Anemia given iron infus ion Allergy Giant cell arteritis (HCC) Prediabetes Family History Medical History Relation Name Comments Alzheimer's disease Mother Heart disease Mother Alzheimer's disease Sister Polymyalgia rheumatica Sister Blindness Neg Hx Glaucoma Neg Hx Macular degeneration Neg Hx Relation Name Status Comments Mother Sister Social History Tobacco Use Types Packs/Day Years [...] on file Sexual Orientation Not on file Obstetrics History Last Filed Vital Signs Vital Sign Reading [...] 05/05/2024 4:18 PM CDT Plan of Treatment Health Maintenance Due Date Last Done Comments Depression Screening 1955 Fall Risk Assessment 1955 Hepatitis C Screening 1955 Hepatitis B Screening 1975 Zoster Vaccine (1 of 2) 2007 Pneumococcal vaccine 65+ (2 of 2 - PCV) 11/10/2020 11/10/2019 Osteoporosis Screening-Bone Density Scan 12/22/2020 12/22/2018 Well Visit 65+ 2022 Breast Cancer Screening-Mammogram 07/18/2023 022, 07/18/2022 Covid-19 Vaccine (4 - 2023-2 5 season) 2024 09/14/2021, 01/01/2021, 12/11/2020 Influenza Vaccine (#1) 2024 2, 06/14/2021, 05/30/2020, Additional history exists Colon Cancer Screening-Colonoscopy 11/25/2028 11/25/2018 DTaP/Tdap/Td Vaccine (2 - Td or Tdap) 12/20/2031 12/19/2021 Colon Cancer Screening-CT Colonography Discontinued 11/25/2018 Colon Cancer Screening-DNA Stool Discontinued 11/26/19 19 Colon Cancer Screening-FIT Discontinued 11/25/2018 Colon Cancer Screening-Sigmoidoscopy Discontinued 11/25/2018 Procedures Procedure Name Priority Date/Time Associated Diagnosis [...] Notes Normal baseline harry Ana Roberts MD OPH VISUAL FIELD Elizabeth l Result * OCT, [...] exam, no clinical significance Ana Roberts MD OPH TOMOGRAPHY Final Result * OCT, Retina - [...] 11/25/2018 10:21 AM Admit Type: Outpatient Room: [facility] 2 Date of : 1955 Instrument Name: [id number] [...] the bowel preparation was evaluated usingthe BBPS ([place] Bowel Preparation Scale) with scores of: Right [...] - Patient has a contact number available foremergencies. The signs and symptoms of potential delayedcomplications were discussed with the patient. Return to normal activities tomorrow. Written discharge instructionswere provided to the patient. - Resume previous diet. - Continue present medications. - Await pathology results. - Pathology results will be sent to you by mail [email or web address] business days. Please call if you do not receivethese. - Repeat colonoscopy in 3 years for surveillance. - Return to endoscopist PRN. Attending Participation: I personally performed the entire procedure without the assistance ofa fellow, resident or case assistant. Electronically signed by Haris Fenton Haris Fenton MD 11/25/2018 11:10:12 AM Number of Addenda: 0 Note Initiated On: 11/25/2018 10:21 AM Haris Fenton MD ENDOSCOPY PROCEDURES Final Result from Last 3 Months or Most Recently Relevant to Health Maintenance [place] [place] [address] [employer] OOS BLUE ACCESS OOS BLUE ACCESS OOS Advance Directives For more information, please contact: [phone] * Full Code (Latest Code Status on File) Date Activated Date Inactivated Comments 11/25/2018 9:49 AM 11/25/2018 3:38 PM Care Teams Medicaid Biller Relationship Specialty Start Date End Date Renita Mahmood MD [address] [place] [address] PCP - teleprinter Obstetrics and Gynecology 10/22/18 Alejandro Stanton MD [address] [place] [address] PCP - General Family Medicine 09/15/24 Sarai Gonzalez MD [address] [facility] [address] [place] [address] Referring Physician Rheumatology 12/20/18
--- OUTSIDE RECORDS SUMMARY | 2025-01-17 16:36 | XMS_ITS ---
Author Organization [facility]az Address [address] [facility] [address] [place] [address] Care Team Providers Care Deputy Sheriff Building Guard Name Role Phone Belkis Conklin MD Primary Care Provider Sarai Lacy [phone] Belkis Conklin Unavailable Unavailable REASON FOR VISIT FYI only Encounters Encounter Location Date Provider Diagnosis [facility] [address] [facility] [address] [place] [address] 08/23/2024 Sarai Gonzalez Plan Of Treatment No Information Progress Notes * Jovanni MAXWELLOB:1955 (69 yo F)Acc No.[id number]:08/23/2024 Patient: Raina THOMAS :1955 A ge:69 Y S ex:Female Address:[address] [place] [address], [facility] [place], [address] * true * Date: Generated for Printi ng/Fanicoleg/eTransmitting on: 0 01/17/2025 04:35 PM CDT
--- OUTSIDE RECORDS SUMMARY | 2025-01-17 16:36 | XMS_ITS ---
Author Organization [facility] Address [address] [facility] [address], [place] [address] Care Team Providers Care Store Clerk Name Role Phone Belkis Conklin MD Primary Care Provider Sarai Lacy [phone] Belkis Conklin Unavailable Unavailable REASON FOR VISIT Refills Medications Medication SIG (Take, Route, Fr equency, Duration) Notes Start Date End Date Status predniSONE 10 MG 1 Orally Once a day for 30 days Active Encounters Encounter Location Date Provider Diagnosis [facility] [address] [facility] [facility] [address], [place] [address] 07/29/2024 Sarai Gonzalez Plan Of Treatment Medication Medication Name Sig Start Date Stop Date Notes predniSONE 10 MG 1 Orally Once a day for 30 days Progress Notes * Jovanni MAXWELLOB:1955 (69 yo F)Acc No.[id number]:07/29/2024 Patient: Raina THOMAS :1955 A ge:69 Y S ex:Female [address] [place] [address] [facility] [address] * Refills Refill predniSONE Tablet, 10 MG, Orally, 30, 1, Once a day, 30 days, Refills=1 * true * Date: Generated for Laura gaines/Seema/Jenitting on: 0 01/17/2025 04:36 PM CDT
--- OUTSIDE RECORDS SUMMARY | 2025-01-17 16:36 | XMS_ITS | Clinical Summary ---
Author Organization [facility] Address [address] [place] [address] Phone Care Team Providers Care Retread Mold Operator Name Role Phone Alejandro Stanton Primary Care Provider [phone] Allergies Active Allergy Reactions Criticality Noted Date Comments Penicillins Other (see Comments),Rash,Unknown Low 1 Unsure Medications predniSONE (DELTASONE) 10 MG Tablet Take 10 mg by mouth daily. Active cetirizine (ZyrTEC) 10 MG Tablet Take 10 mg by mouth as needed. Active fluticasone (FLONASE) 50 MCG/ACT Suspension 2 Sprays by Nasal route. Active azelastine (ASTELIN) 0.1 % Solution 2 Sprays by Nasal route daily. Use in each nostril as directed Active Active Problems Problem Noted Date Diagnosed Date Lung nodule 08/22/2024 Encounters Date Type Department Care Team Description 10/21/2024 Telephone [facility] [address] [address] Josue Bangura MD from Last 3 Months Family History Medical History Relation Name Comments Heart Attack Mother Heart Disease Mother Diabetes Sister 1 Relation Name Status Comments Child 1 Alive Child 2 Alive Father Mother Sister 1 Alive Sister 2 Alive Social History Tobacco Use Types Packs/Day Years Used Date Smoking Tobacco: Every Day Cigarettes Smokeless Tobacco: Never Tobacco Cessation:Ready to Q uit: Not Asked; Counseling Given: Not Answered Alcohol Use Standard Drinks/Week Comments Yes 7 (1 standard drink = 0.6 oz pur e alcohol) Comments Unknown Sex and Gender Information Value Date Recorded Sex Assigned at Not on file Legal Sex Female 9:18 PM CDT Gender Identity Not on file Sexual Orientation Not on file Last Filed Vital Signs Vital Sign Reading Time Taken Comments Blood Pressure 136/84 09/26/2024 11:37 AM INTERPRETIVE PROGRAM COORDINATOR Pulse 92 09/26/2024 11:37 AM INTERPRETIVE PROGRAM COORDINATOR Temperature 36.6 C (97.8 F) 09/26/2024 11:37 AM INTERPRETIVE PROGRAM COORDINATOR Respiratory Rate 18 09/26/2024 11:37 AM INTERPRETIVE PROGRAM COORDINATOR Oxygen Saturation 94% 09/26/2024 11:37 AM INTERPRETIVE PROGRAM COORDINATOR Inhaled Oxygen Concentration - - Weight 65.8 kg (145 lb) 09/26/2024 11:37 AM INTERPRETIVE PROGRAM COORDINATOR Height 162.6 cm (5' 4 ) 09/26/2024 11:37 AM INTERPRETIVE PROGRAM COORDINATOR Body Mass Index 24.89 09/26/2024 11:37 AM INTERPRETIVE PROGRAM COORDINATOR Plan of Treatment Health Maintenance Due Date Last Done Comments DEXA Bone Density 1955 Hepatitis C Virus (HCV) Screening 1955 Cologuard 2007 Zoster Immunization (1 of 2) 2007 Immunochemical Fecal Occult Blood 05/05/2017 05/05/2016 Mammogram 07/18/2023 07/18/2022, 07/18/2022 SARS-COV-2 Immunization ( season) 2024 09/14/2021, 01/01/2021, 12/11/2020 Influenza Immunization (Season Ended) 2025 06/14/2022, 06/14/2021, 05/30/2020, Additional history exists Colonoscopy 11/25/2028 11/25/2018 Colorectal Cancer Screening 11/25/2028 Respiratory Syncytial Virus (RSV) Immunization (Adult) (1 - 1-dose 75+ series) 02/22/2032 11/25/2018 TdaP Immunization Completed 12/19/2021 Pneumococcal Immunization (50+ years) Completed 12/24/2022, 11/10/2019 Hepatitis B Immunization Aged Out No longer eligible based on patient's age to complete this topic Meningococcal Immunization (ACWY) Aged Out No longer eligible based on patient's age to complete this topic Rotavirus Immunization Aged Out No lo nger eligible based on patient's age to complete this topic Insurance [facility] Care Teams Retread Mold Operator Relationship Specialty Start Date End Date Maximino Alejandro [address] [place] [address] PCP - General Family Medicine 08/15/24
[2025-01-17 16:39] VITALS: BP 146/95; PULSE 124; RESP 16; TEMP 36.6; O2SAT 100
--- NOTE | 2025-01-17 16:43 | ECG_ITS ---
Test Date: 2025-01-17 16:49:34 Measurements Intervals [place] Rate: 119 P: 62 WV: 174 QRS: 81 QRSD: 86 T: 67 QT: 412 QTc: 582 Interpretive Statements SINUS TACHYCARDIA ABNORMAL RHYTHM ECG No previous ECG available for comparison Electronically Signed On 01-18-2025 07:16:08 CDT by Jeff Mcrae M.D.
[2025-01-17 17:03] LABS: Basophils Percent Auto 0.4 % (0.2-1.2); Hematocrit 46.4 % (37.0-47.0); Hemoglobin 15.6 g/dL (12.0-15.0); Immature Granulocyte Absolute 0.02 K/mm3 (0.00-0.031); Immature Granulocyte Percent A 0.3 % (0-0.5); Lymphocytes Absolute Auto 1.06 K/mm3 (0.9-3.2); Lymphocytes Percent Auto 14.7 % (18.3-44.2); Mean Corpuscular HGB Conc 33.6 g/dl (32-36); Mean Corpuscular Hemoglobin 32.4 pg (26-34); Mean Corpuscular Volume 96.3 fl (80-100); Mean Platelet Volume 9.3 fl (7.4-10.4); Monocytes Absolute Auto 0.3 K/mm3 (0.1-0.6); Monocytes Percent Auto 4.2 % (2.6-8.5); Neutrophils Absolute Auto 5.8 K/mm3 (1.3-6.7); Neutrophils Percent Auto 80.4 % (45.5-73.1); Platelet Count Result 228 k/mm3 (150-375); Red Blood Count 4.82 M/mm3 (4.2-5.4); Red Cell Distribution Width 11.9 % (11.5-14.5); White Blood Count 7.2 K/mm3 (4.5-10.0)
[2025-01-17 17:13] LABS: INR 0.9; Prothrombin Time 12.3 Seconds (11.1-14.7)
[2025-01-17 17:14] LABS: Alanine Aminotransferase 23 U/L (6-35); Albumin Level 4.9 g/dL (3.5-5.1); Alkaline Phosphatase 91 U/L (38-126); Anion Gap 11 mmol/L (4-12); Aspartate Amino Transferase 24 U/L (14-36); Bilirubin,Total 0.9 mg/dL (0.2-1.3); Blood Urea Nitrogen 10 mg/dL (7-17); Calcium 9.7 mg/dL (8.4-10.2); Carbon Dioxide 24 mmol/L (22-30); Chloride 103 mmol/L (98-107); Estimated CRCL calculation 46 ml/min; Estimated Glomerular Filt Rate > 60; Glucose 157 mg/dL (65-110); Lipase 86 U/L (23-300); Partial Thromboplastin Time 27.7 Seconds (22.3-36.8); Potassium 4.1 mmol/L (3.4-5.0); Sodium 138 mmol/L (137-145)
[2025-01-17 17:28] LABS: Troponin I < 0.012 ng/mL (0.000-0.034)
[2025-01-17 17:38] LABS: CRP < 0.5 mg/dL (<1.0)
--- NOTE | 2025-01-17 17:45 | ED_ITS ---
HPI - Chest Pain General Chief Complaint: Chest Pain Stated Complaint: Sent By PMD, elevated BP/heart rate, dizzy Time Seen by Provider: 01/17/25 16:47 Source: patient Mode of arrival: ambulatory Limitations: no limitations History of Present Illness HPI narrative: This is a 69-year-old female, with history of temporal arteritis and COPD, who presents emergency department and recommendation of her primary care doctor with complaints of lightheadedness Christine for the past 3 days. She states she feels lightheaded and has intermittent mild dull substernal chest pain without any known aggravating or alleviating factors. She complains of intermittent dry cough without bleeding. She has no other complaints at this time. Related Data Home Medications ?Medication ?Instructions ?Recorded ?Confirmed ?Last Taken ?Type azelastine 137 mcg (0.1 %) nasal intranasal 12/15/24 12/15/24 Unknown History spray budesonide 160 mcg-glycopyr 9 inh inhalation 12/15/24 12/15/24 Unknown History mcg-formot 4.8 mcg/actuation HFA inhaler (Breztri Aerosphere) prednisone 5 mg tablet 5 mg PO 12/15/24 12/15/24 Unknown History Allergies Allergy/AdvReac Type Severity Reaction Status Date / Time aspirin Allergy Itching Verified 01/17/25 16:34 Penicillins Allergy Unknown Verified 01/17/25 16:34 Review of Systems 2 Review of Systems: All systems reviewed & are unremarkable except as noted in HPI and below PMFSH Past Medical History Medical History Temporal arteritis Dyslipidemia CAD (coronary artery disease) Surgical History Surgical History No significant past surgical history Social History Social History Smoking status: Current every day smoker Tobacco type: cigarettes Alcohol intake: current Drinks per week: 10 Substance use type: does not use Living arrangements: alone Spiritual care concerns: No Exam 2 Narrative: GENERAL: Well-developed, well-nourished, and in no acute distress. HEAD: Normocephalic, atraumatic. EYES: PERRLA and EOMI. ENT: Nares clear, no rhinorrhea or epistaxis. Mucous membranes moist. Oropharynx without tonsillar hypertrophy exudate or other lesions. CHEST: Clear to auscultation. No respiratory distress. No wheezes rales or rhonchi HEART: Tachycardic with regular rhythm. No murmur heard. Normal peripheral pulses. ABDOMEN: Soft, nontender, nondistended, normal active bowel sounds. EXTREMITIES: Normal range of motion. No edema. SKIN: Warm, dry, no rash. NEURO: Alert and oriented x3. No focal deficit. Moving all 4 limbs spontaneously PSYCH: Normal mood and affect. Course Course Emergency Course: 22:11 - CBC demonstrates hemoglobin of 15.6 but is otherwise unremarkable. The patient states she has had elevate hemoglobins previously. Chemistries within normal limits. Troponin negative x2. Initial EKG demonstrated sinus tachycardia and QTC prolongation with repeat EKG after IV fluids and magnesium demonstrating sinus rhythm with a normal QTC. CT brain negative for intracranial mass or hemorrhage. CT angiogram of the chest negative for PE or infection though does show ?innumerable pulmonary nodules? thought to be secondary to the patient's history of temporal arteritis. There is a pneumatocele with a stable 9 mm nodule in the margin. On re-evaluation, the patient states she feels improved. Her lightheadedness has resolved. Heart score 3. She voices preference to be discharged and follow up with her primary care doctor. I discussed the findings and recommendations with the patient. Discussed return and emergency precautions including signs/symptoms of ACS and respiratory distress. The patient voiced understanding and agreement with the plan. All questions answered to her satisfaction. Vital Signs Vital signs: Vital Signs Temperature 97.8 F 01/17/25 16:39 Pulse Rate 124 H 01/17/25 16:39 Respiratory Rate 16 01/17/25 16:39 Blood Pressure 146/95 H 01/17/25 16:39 Pulse Oximetry 100 01/17/25 16:39 Oxygen Delivery Room Air 01/17/25 16:39 Temperature 97.8 F 01/17/25 16:39 Pulse Rate 124 H 01/17/25 16:39 Respiratory Rate 16 01/17/25 16:39 Blood Pressure 146/95 H 01/17/25 16:39 Pulse Oximetry 100 01/17/25 16:39 Oxygen Delivery Room Air 01/17/25 16:39 MDM - Chest Pain MDM Narrative Medical decision making narrative: Plan: Labs, EKG, imaging, troponin, IV fluids, reassess Differential Diagnosis Differential diagnosis: Likely pneumothorax, costochondritis and other (ACS, PE, pneumonia, malignancy, temporal arteritis, arrhythmia, metabolic abnormality, other) Lab Data 01/17/25 16:53 01/17/25 16:53 Labs: Lab Results 01/17/25 01/17/25 Range/Units 16:53 20:08 WBC 7.2 (4.5-10.0) K/mm3 RBC 4.82 (4.2-5.4) M/mm3 Hgb 15.6 H (12.0-15.0) g/dL Hct 46.4 (37.0-47.0) % MCV 96.3 (80-100) fl MCH 32.4 (26-34) pg MCHC 33.6 (32-36) g/dl RDW 11.9 (11.5-14.5) % Plt Count 228 (150-375) k/mm3 MPV 9.3 (7.4-10.4) fl Immature Gran % (Auto) 0.3 (0-0.5) % Neut % (Auto) 80.4 H (45.5-73.1) % Lymph % (Auto) 14.7 L (18.3-44.2) % [place] % (Auto) 4.2 (2.6-8.5) % Eos % (Auto) 0.0 (0-4.4) % Baso % (Auto) 0.4 (0.2-1.2) % Lymph # (Auto) 1.06 (0.9-3.2) K/mm3 [place] # (Auto) 0.3 (0.1-0.6) K/mm3 Eos # (Auto) 0.0 (0-0.3) K/mm3 Baso # (Auto) 0.0 (0.0-0.1) K/mm3 Abs Immat Gran (auto) 0.02 (0.00-0.031) K/mm3 Absolute Neuts (auto) 5.8 (1.3-6.7) K/mm3 Absolute Nucleated RBC 0.000 (0.0-0.012) K/mm3 Nucleated RBC % 0.0 (0.0-0.2) % ESR 15 (0-20) mm/hr PT 12.3 (11.1-14.7) Seconds INR 0.9 APTT 27.7 (22.3-36.8) Seconds Sodium 138 (137-145) mmol/L Potassium 4.1 (3.4-5.0) mmol/L Chloride 103 (98-107) mmol/L Carbon Dioxide 24 (22-30) mmol/L Anion Gap 11 (4-12) mmol/L BUN 10 (7-17) mg/dL Creatinine 0.89 (0.7-1.0) mg/dL Estim Creat Clear Calc 46 ml/min Estimated GFR > 60 (59 - ) Glucose 157 H (65-110) mg/dL Calcium 9.7 (8.4-10.2) mg/dL Total Bilirubin 0.9 (0.2-1.3) mg/dL AST 24 (14-36) U/L ALT 23 (6-35) U/L Alkaline Phosphatase 91 (38-126) U/L Troponin I < 0.012 < 0.012 (0.000-0.034) ng/mL C-Reactive Protein < 0.5 (<1.0) mg/dL Total Protein 8.0 (6.3-8.2) g/dL Albumin 4.9 (3.5-5.1) g/dL Lipase 86 (23-300) U/L ECG Data EKG #1: Attestation: I personally reviewed and interpreted this ECG as follows: ECG completion date: 01/17/25 ECG completion time: 16:49 Interpretation: Sinus tachycardia, rate 119, normal axis, no ST segment elevations or T-wave inversions concerning for ischemia, prolonged QTC of 582 with otherwise normal intervals Discharge Plan Discharge Clinical Impression: Lightheadedness, Sinus tachycardia, Prolonged QT interval Patient Disposition: Home Condition: Stable Instructions: Antibiotic Form, Tachycardia (ED) Additional Instructions: You were seen in the emergency department. Your initial EKG showed a fast rhythm with a prolonged QT that improved after IV fluids and magnesium. A CT scan of the chest showed a 9 mm nodule at the margin of the previously seen pneumatocele. There are multiple other nodules that are thought to be secondary to your temporal arteritis. Our radiologist recommends a repeat PET-CT in 3 months. Your labs are not concerning for liver, kidney or heart injury. I recommend following up with your primary care doctor. If you develop loss of consciousness, weakness/numbness, difficulty breathing, chest pain, or if you have other emergent concerns for life, limb, or eyesight, return to the emergency department. Patient Language: Brazilian Prescriptions: No Action prednisone 5 mg tablet 5 mg PO azelastine 137 mcg (0.1 %) spray,non-aerosol intranasal Breztri Aerosphere 160-9-4.8 mcg/actuation HFA aerosol inhaler inhalation Follow-up/Referrals: Alejandro Stanton MD [Primary Care Provider] - 2 Weeks Time of Disposition: 22:15
[2025-01-17 17:51] LABS: Erythrocyte Sedimentation Rate 15 mm/hr (0-20)
[2025-01-17] MEDS: MAGNESIUM SULF 2 GM/WATER 50ML 2 GM/50 ML BAG IVPB (18:01)
--- OUTSIDE RECORDS SUMMARY | 2025-01-17 18:07 | XMS_ITS | Continuity of Care Document ---
Author Organization [facility] Address [address] [place] [address] [place] [address] Phone Care Team Providers Care Head Cook Name Role Phone Alejandro Stanton MD Unavailable [...] Diagnoses Date Provider Providers Copied on Encounter [facility], [address], [place], [place], [id number], [place] tel:[phone] [facility] dizziness1 (chief complaint) No Information Maximino Allen. [address], [place], [place], [address] , [place]. tel:[phone] OFFICE/OUTPA TIENT VISIT, EST [facility], [address], [place], [place], [address], tel:[phone] [facility] HLP (chief complaint) iron (chief complaint) glucose1 (chief complaint) COPD1 (chief complaint) Mixed hyperlipidemiaCentr ilobular emphysemaHyperglyce miaSecondary polycythemiaDisorde r of iron metabolism, unspecifiedAbnormal red-cell morphology Dec-0 5 Maximino Allen. [address], [place], [place], [address] , [place]. tel:[phone] OFFICE/OUTPA TIENT VISIT, [facility], [address], [place], [place], [address], tel:[phone] [facility] TA1 (chief complaint) lung nodule1 (chief complaint) CAD (chief complaint) Atherosclerotic heart disease of [place] coronary artery without angina pectorisCentrilobul ar emphysemaSolitary lung noduleOther giant cell arteritis Nov-2 5 Maximino Allen. [address], [place], [place], [address] , [place]. tel:[phone] OFFICE/OUTPA TIENT VISIT, [facility], [address], [place], [place], [address], [place] tel:[phone] [facility] COPD1 (chief complaint) ffatigue1 (chief complaint) sinus1 (chief complaint) TA (chief complaint) FatigueSolitary lung noduleOther giant cell arteritisCentrilobu lar emphysemaAnosmia Mar-0 - 5 Maximino Allen. [address], [place], [place], [address] , [place]. tel:[phone] PREV VISIT, NEW, 65 & OVER [facility], [address] [place], [place], [address], [place] tel:[phone] [facility] physical (chief complaint) Encounter for general adult medical exam w abnormal findingsOther giant cell arteritisChronic sinusitisFatigueSol itary lung noduleAnosmia Nov-0 - 4 Maximino Allen. [address], [place], [place], [address] , [place]. tel:[phone] Family History Family Member Type Diagnosis Age At Onset Mother Problem CAD and stroke 65 Mother Problem 70s sepsis Sister Problem dementia 75 Father Problem of 72 alzheimer disease Payers Payer name Insurance type Covered green party ID Pritesh garza(vipin) [facility] [id number] Social History Type Description Quantity Date Captured [...] denies any polyuria ,polydipsia. 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 Pt started breztri and she is doing well Pt has not felt sob since starting breztri lung nodule1 Pt has lung nodu le. Pt had PET scan done 4 months ago and she keeps getting call from oncology about CT scan. Pt does feel sob Pt has not tried breztri yet. Pt denies any hemoptysis. CAD Pt has coronary artery calcification on CT scan. Pt denies any chest pain Pt has fouzia with cardiology next week. TA1 Pt has temporal arteritis. Pt has headache. pt denies any vision change. pt is seeing rheumatology and she is on chronic low dose steroid. Pt has not seen Dr. Gonzalez for a while and she is out of prednisone Pt denies any recurrent headache or any vision change ffatigue1 Pt c/o chronic f atigue pt is not sure if she snores at night . sinus1 Pt has chronic s inus congestion and she is seeing ENT Pt had sinus CT which was benign Pt failed abx. 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 Pt is on astelin nasal spray by ENT> COPD1 Pt is heavy smok er and [...] Pt is on chronic prednisone per rheumatology physical Pt needs annual physical. Pt is [...]
--- OUTSIDE RECORDS SUMMARY | 2025-01-17 18:07 | XMS_ITS | Referral Summary ---
Author Organization [facility] Address [address] [place] [address] Care Team Providers Care Jewelry Dipper Name Role Phone Renita Mahmood MD Unavailable Sarai Gonzalez MD Unavailable Alejandro Stanton MD Primary Care Provider Encounters Date Type Department Care Team Description 11/21/2024 3:20 PM CDT Imaging Exam [facility] Ophthalmology [address] [place] [address] Outpatient Health [address] [place] [phone] 11/21/2024 3:10 PM CDT Imaging Exam [facility] Ophthalmology [address] [place] [address] Outpatient Health [address] [place] [phone] 11/21/2024 1:00 PM CDT Office Visit [facility] Ophthalmology [address] [place] [address] [phone] Hans Carter MD Giant cell arteritis syndrome [...] (12/09/2018): Added automatically from request for surgery [id number] Special screening for malign ant neoplasms, colon [...] Notes Normal baseline harry Ana Roberts MD [facility] VISUAL FIELD Elizabeth l Result * OCT, [...] 11/25/2018 10:21 AM Admit Type: Outpatient Room: [facility] Date of : 1955 Instrument Name: [id number] [...] the bowel preparation was evaluated usingthe BBPS ([place] Bowel Preparation Scale) with scores of: Right [...] - [facility] The signs and symptoms of potential delayedcomplications were discussed with the patient. Return to normal activities tomorrow. Written discharge instructionswere provided to the patient. - Resume previous diet. - Continue present medications. - Await pathology results. - Pathology results will be sent to you by mail [email or web address] business days. Please call if you do not receivethese. - Repeat colonoscopy in 3 years for surveillance. - Return to endoscopist PRN. Attending Participation: I personally performed the entire procedure without the assistance ofa fellow, resident or surgical supplies sterilizer. Electronically signed by Haris Fenton Haris Fenton MD 11/25/2018 11:10:12 AM Number of Addenda: 0 Note Initiated On: 11/25/2018 10:21 AM Haris Fenton MD ENDOSCOPY PROCEDURES Final Result from Last 3 Months or Most Recently Relevant to Health Maintenance Insurance [employer] OOS [employer] ACCESS OOS [employer] ACCESS OOS Advance Directives For more information, please contact: [phone] * Full Code (Latest Code Status on File) Date Activated Date Inactivated Comments 11/25/2018 9:49 AM 11/25/2018 3:38 PM Care Teams Jewelry Dipper Relationship Specialty Start Date End Date Renita Mahmood MD [address] [facility] [address] [place] [address] PCP - shoemaker apprentice Obstetrics and Gynecology 10/22/18 Alejandro Stanton MD [address] [place] [address] PCP - General Family Medicine 09/15/24 Sarai Gonzalez MD [address] [facility] [address] [place] [address] Referring Physician Rheumatology 12/20/18
--- OUTSIDE RECORDS SUMMARY | 2025-01-17 18:07 | XMS_ITS | Clinical Summary ---
Author Organization [facility] Address [address] [place] [address] Care Team Providers Care Tuck Pointer Helper Name Role Phone Renita Mahmood MD Unavailable [phone] Sarai Gonzalez MD Unavailable Alejandro Stanton MD Primary Care Provider Allergies Active Allergy Reactions Criticality Noted Date [...] (12/09/2018): Added automatically from request for surgery [id number] Special screening for malign ant neoplasms, colon 10/22/2018 11/21/2024 Overview (12/10/2018): T-A; recall colonocsopy 5 years 2023 Liver lesion 08/26/2018 11/21/2024 Pelvic congestion 08/26/2018 11/21/2024 Nausea 08/02/2018 11/21/2024 Night sweats 08/02/2018 11/21/2024 Rash 08/02/2018 11/21/2024 Genital herpes 06/16/2014 11/21/2024 Encounters Date Type Department Care Team Description 11/21/2024 3:20 PM CDT Imaging Exam [facility] [address] [place] [phone] 11/21/2024 3:10 PM CDT Imaging Exam [facility] [address] [facility] [place] [facility] [address] [place] [phone] 11/21/2024 1:00 PM CDT Office Visit [facility]hthal[facility] [address] [facility] [address] [place] [address] Hans Carter MD Giant cell arteritis syndrome [...] 11/25/2018 10:21 AM Admit Type: Outpatient Room: [facility] 2 Date of : 1955 Instrument [...] the bowel preparation was evaluated usingthe BBPS ([place] Bowel Preparation Scale) with scores of: Right [...] will be sent to you by mail [email or web address] business days. Please call if you do not receivethese. - Repeat colonoscopy in 3 years for surveillance. - Return to endoscopist PRN. Attending Participation: I personally performed the entire procedure without the assistance ofa fellow, resident or surgical corsetier. Electronically signed by Haris Fenton aHris Fenton MD 11/25/2018 11:10:12 AM Number of Addenda: 0 Note Initiated On: 11/25/2018 10:21 AM Haris Fenton MD ENDOSCOPY PROCEDURES Final Result from Last 3 Months or Most Recently Relevant to Health Maintenance [place] [place] [address] [place] OOS BLUE ACCESS OOS BLUE ACCESS OOS Advance Directives For more information, please contact: [phone] * Full Code (Latest Code Status on File) Date Activated Date Inactivated Comments 11/25/2018 9:49 AM 11/25/2018 3:38 PM Care Teams Tuck Pointer Helper Relationship Specialty Start Date End Date Renita Mahmood MD [address] [address] [place] [address] PCP - military technology specialist Obstetrics and Gynecology 10/22/18 Alejandro Stanton MD [address] [place] [address] PCP - General Family Medicine 09/15/24 Sarai Gonzalez MD [address] [facility] [address] [place] [address] Referring Physician Rheumatology 12/20/18
--- OUTSIDE RECORDS SUMMARY | 2025-01-17 18:07 | XMS_ITS | Clinical Summary ---
Author Organization [facility] Address [address] [place] [address] Phone Care Team Providers Care Space Physicist Name Role Phone Alejandro Stanton Primary Care Provider [phone] Allergies Active Allergy Reactions Criticality Noted Date [...] Description 10/21/2024 Telephone [facility] [address] [address] Josue Bangura MD from Last [...] Comments Blood Pressure 136/84 09/26/2024 11:37 AM RIM TURNING MACHINE OPERATOR Pulse 92 09/26/2024 11:37 AM RIM TURNING MACHINE OPERATOR Temperature 36.6 C (97.8 F) 09/26/2024 11:37 AM RIM TURNING MACHINE OPERATOR Respiratory Rate 18 09/26/2024 11:37 AM RIM TURNING MACHINE OPERATOR Oxygen Saturation 94% 09/26/2024 11:37 AM RIM TURNING MACHINE OPERATOR Inhaled Oxygen Concentration - - Weight 65.8 kg (145 lb) 09/26/2024 11:37 AM RIM TURNING MACHINE OPERATOR Height 162.6 cm (5' 4 ) 09/26/2024 11:37 AM RIM TURNING MACHINE OPERATOR Body Mass Index 24.89 09/26/2024 11:37 AM RIM TURNING MACHINE OPERATOR Plan of Treatment Health Maintenance Due Date [...] patient's age to complete this topic Insurance [facility] Care Teams Space Physicist Relationship Specialty Start Date End Date Maximino Alejandro [address] [place] [address] PCP - General Family Medicine 08/15/24
--- OUTSIDE RECORDS SUMMARY | 2025-01-17 18:07 | XMS_ITS | Encounter Summary ---
Author Organization [facility] Address [address] [place] [address] Phone Care Team Providers Care Exhibitor Sales Name Role Phone Alejandro Stanton Primary Care Provider [phone] Encounter Details Date Type Department Care Team (Late st Contact Info) Description 10/21/2024 Telephone [facility] [address] [place] [address] Josue Bangura MD [address] [facility] [address] [place] [address] Social History Tobacco Use Types [...] on filedocumented in this encounter Care Teams Exhibitor Sales Relationship Specialty Start Date End Date Alejandro Stanton [address] [place] [address] PCP - General Family Medicine 08/15/24 documented as of this encounter
--- OUTSIDE RECORDS SUMMARY | 2025-01-17 18:07 | XMS_ITS | Clinical Summary ---
Author Organization [facility] Address [address] [facility] [place] [address] Phone Care Team Providers Care Crutcher Helper Name Role Phone Belkis Conklin MD Primary [...] COVID-19 VACCINE - EMERGENCY USE AUTHORIZATION, MRNA, [id number](PF) 30 MCG/0.3 ML IM SUSP 09/14/2021,01/01/2021,12/11/2020 (PNEUMOVAX 23)(50 YRS UP) PN EUMOCOCCAL POLYSACCHARIDE (PPV23) 0.5 ML, IM 11/10/2019 (PREVNAR 20)(6 WKS UP) PNEUM OCOCCAL CONJUGATE VACCINE 20-VALENT (PCV20), POLYSACCHARIDE [id number] CONJUGATE, ADJUVANT 0.5 ML (PF) IM 12/24/2022 [...] on file Legal Sex Female 6:06 AM CHIEF OF POLICE Gender Identity Not on file Sexual Orientation Not on file Last Filed Vital Signs Vital Sign Reading Time Taken Comments Blood Pressure 110/80 01/29/2023 1:29 PM CDT Pulse 87 01/29/2023 1:29 PM CDT Temperature 36.9 C (98.5 F) 01/29/2023 1:29 PM CDT Respiratory Rate 8 11/12/2018 2:07 PM CHIEF OF POLICE Oxygen Saturation 99% 01/29/2023 1:29 PM CDT [...] Unknown 05/05/2016 9:56 AM CDT Sasha Mosher CORE STICKER POINT OF CARE TESTING Final Result [facility] from Last 3 Months or Most Recently Relevant to Health Maintenance Insurance [facility] BLUE ACCESS/TRUE BLUE PPO Care Teams Crutcher Helper Relationship Specialty Start Date End Date Belkis Conklin MD PCP - General Family Practice 08/09/18
--- NOTE | 2025-01-17 19:50 | ECG_ITS ---
Test Date: 2025-01-17 20:14:38 Measurements Intervals [place] Rate: 86 P: 70 CA: 196 QRS: 85 QRSD: 90 T: 64 QT: 379 QTc: 455 Interpretive Statements SINUS RHYTHM NORMAL ELECTROCARDIOGRAM Compared to ECG 01/17/2025 16:49:34 Sinus tachycardia no longer present Electronically Signed On 01-18-2025 07:20:10 CDT by Jeff Mcrae M.D.
[2025-01-17 20:36] LABS: Troponin I < 0.012 ng/mL (0.000-0.034)
[2025-01-17 22:11] VITALS: BP 140/85; PULSE 79; RESP 22; TEMP 36.9; O2SAT 100
--- NOTE | 2025-01-17 22:14 | PC.NURSE ---
Verbal okay per MD Meek for patient to be discharged prior to papers being given. patient alert and oriented x4. MD Meek talked with patient prior to leaving about follow up. patient ambulatory with steady gait at this time.
== END 2025-01-17 22:17 | disposition home or self-care (01) ==
PROVIDERS: Emergency Provider Preventive Medicine Aerospace Medicine; PCP Emergency Medicine
DX: R00.0 Tachycardia, unspecified (principal); R42 Dizziness and giddiness; F17.210 Nicotine dependence, cigarettes, uncomplicated; E78.5 Hyperlipidemia, unspecified; I25.10 Atherosclerotic heart disease of native coronary artery without angina pectoris
CPT/HCPCS: 36415; 70450; 71046; 71275; 80053; 83690; 84484; 85025; 85610; 85652; 85730; 86140; 93005; 96365; 99284; J3475; Q9967

== ENCOUNTER 2025-04-17 10:32 | Outpatient (CLI) | payer BC, SELFPAY ==
--- NOTE | ~2025-04-17 | CT_ITS ---
CT Scan of the Chest without Contrast: Clinical Indication: Lung nodule Technique: Contiguous sections were acquired throughout the chest without intravenous contrast. Dose reduction technique was used on this scan by utilizing automated exposure control and iterative recon struction technique. The dose-length product (DLP) was 59.73 mGy-cm. COMPARISON: 01/17/2025 Findings: There is no evidence of any significant mediastinal, hilar or axillary lymphadenopathy. Extensive cor onary artery calcifications are present. There is no evidence of pleural or pericardial effusion. . Stable groundglass nodule in the right upper lobe (axial image 48). Stable cystic lesions in the ri ght lower lobe. Other small pulmonary nodule seen on prior exam are resolved. Images through the upper abdomen reveal no abnormalities. Impression: Stable small groundglass nodule in the right upper lobe. Other pulmonary nodules seen on prior exam r esolved. Stable cystic lesions in the right lower lobe, largest demonstrates mild eccentric wall thickening, u nchanged. Reviewed, dictated and finalized at location M. Impression: Stable small groundglass nodule in the right upper lobe. Other pulmonary nodule s seen on prior exam resolved. Stable cystic lesions in the right lower lobe, largest demonstrates mild eccent lili wall thickening, unchanged.
--- OUTSIDE RECORDS SUMMARY | 2025-04-17 10:59 | XMS_ITS | Encounter Summary ---
Author Organization [facility] Address [address] [place] [address] Phone Care Team Providers Care Ct Technician Name Role Phone Alejandro Stanton Primary Care Provider [phone] Reason for Visit * Reason Onset Date Comments Canopy Call / Scan results 10/21/2024 Encounter Details Date Type Department Care Team (Late Contact Info) Description 10/21/2024 Telephone [facility] [address] [phone] Josue Bangura MD [address] [place] [address] Canopy Call / Scan results Social History Tobacco Use Types Packs/Day Years [...] as of this encounter Plan of Treatment Upcoming Encounters Date Type Department Care Team (Late Contact Info) Description 05/01/2025 11:30 AM CDT Office Visit [facility] [address] [phone] Josue Bangura MD [address] [place] [address] documented as of this encounter Visit Diagnoses Not on filedocumented in this encounter Care Teams Ct Technician Relationship Specialty Start Date End Date Alejandro Stanton [address] [place] [address] PCP - General Family Medicine 08/15/24 documented as of this encounter
--- OUTSIDE RECORDS SUMMARY | 2025-04-17 10:59 | XMS_ITS | Clinical Summary ---
Author Organization [facility] Address [address] [facility] [place] [address] Phone Care Team Providers Care Personal Chef Name Role Phone Belkis Conklin MD Primary [...] Encounters Date Type Department Care Team Description 03/29/2025 External Device Data [facility] ABSTRACTION Provider, Abstract 03/29/2025 External Device Data [facility] ABSTRACTION Provider, Abstract 03/21/2025 External Device Data [place]STRACTION Provider, Abstract 02/02/2025 External Device Data [place] ABSTRACTION Provider, Abstract 02/01/2025 External Device Data [facility] ABSTRACTION Provider, Abstract from Last 3 Months Immunizations Immunization Administration Dates Next Due (ADACEL/BOOSTRIX)(10 YR UP) TDAP VACCINE, 0.5ML, IM 12/19/2021 (PFIZER)(12 YR UP) COVID-19 VACCINE - EMERGENCY USE AUTHORIZATION, MRNA, [id number](PF) 30 MCG/0.3 ML IM SUSP 09/14/2021,01/01/2021,12/11/2020 (PNEUMOVAX 23)(50 YRS UP) PN EUMOCOCCAL POLYSACCHARIDE (PPV23) 0.5 ML, IM 11/10/2019 (PREVNAR 20)(6 WKS UP) PNEUM OCOCCAL CONJUGATE VACCINE 20-VALENT (PCV20), POLYSACCHARIDE [id number] CONJUGATE, ADJUVANT 0.5 ML (PF) IM 12/24/2022 [...] on file Legal Sex Female 6:06 AM HOSEMAN Gender Identity Not on file Sexual Orientation Not on file Last Filed Vital Signs Vital Sign Reading Time Taken Comments Blood Pressure 110/80 01/29/2023 1:29 PM CDT Pulse 87 01/29/2023 1:29 PM CDT Temperature 36.9 C (98.5 F) 01/29/2023 1:29 PM CDT Respiratory Rate 8 11/12/2018 2:07 PM HOSEMAN Oxygen Saturation 99% 01/29/2023 1:29 PM CDT Inhaled Oxygen Concentration - - Weight 63 kg (139 lb) 01/29/2023 1:29 PM CDT Height 162.6 cm (5' 4) 01/29/2023 1:29 PM CDT Body Mass Index [...] 05/05/2017 05/05/2016, 06/16/2014 BREAST CANCER SCREENING 07/18/2023 07/18/20 22, 07/18/2022, 07/18/2022, Additional history exists OSTEOPOROSIS SCREENING 12/23/2023 12/22/2018 COVID-19 Vaccine (5 - 2023-2 5 season) 2024 09/14/2021, 09/11/2021, 01/01/2021, Additional history exists INFLUENZA VACCINE (#1) 2025 , 06/14/2021, 05/30/2020, Additional history exists COLORECTAL SCREENING 11/25/2028 11/25/2018, 11/26/19 Colorectal Cancer Screening 11/25/2028 DTAP/TDAP/TD VACCINES (2 [...] Region Laterality Modality Chest Computed Tomogra phy Belkis Conklin MD CT ORDERABLES Final R esult * MAMMO SCREEN BILAT W OR WO CAD (07/18/2022) Anatomical Region Laterality Modality Breast Bilateral Mammography Belkis Conklin MD MAMMO ORDERABLES Final Result [...] Unknown 05/05/2016 9:56 AM CDT Sasha Mosher NP POINT OF CARE TESTING Final Result [facility] Last 3 Months or Most Recently Relevant to Health Maintenance Insurance [facility] BLUE ACCESS/TRUE BLUE PPO Care Teams Personal Chef Relationship Specialty Start Date End Date Belkis Conklin MD PCP - General Family Practice 08/09/18
--- OUTSIDE RECORDS SUMMARY | 2025-04-17 11:00 | XMS_ITS | Referral Summary ---
Author Organization [facility] Address [address] [place] [address] Care Team Providers Care Mowing Machine Operator Name Role Phone Renita Mahmood MD Unavailable [phone] Sarai Gonzalez MD Unavailable Alejandro Stanton MD Primary Care Provider Encounters Date Type Department Care Team Description 04/10/2025 11:00 AM CDT Lab [address] [address] 02/01/2025 3:15 PM CDT Lab [address] [address] from Last 3 Months Allergies Active Allergy [...] (12/09/2018): Added automatically from request for surgery [id number] Special screening for malign ant neoplasms, colon [...] 4:18 PM CDT Height 165.1 cm (5' 5) 05/05/2024 4:18 PM CDT Body Mass Index 24.05 05/05/2024 4:18 PM CDT Plan of Treatment Not on file Procedures Procedure Name Priority Date/Time Associated Diagnosis Comments EGFR Routine 04/10/2025 11:05 AM CDT DIFFERENTIAL AUTO Routine 04/10/2025 11: 05 AM CDT CRP (ACUTE PHASE) Routine 04/10/2025 11: 05 AM CDT ERYTHROCYTE SEDIMENTATION RATE Routine 04/10/2025 11:05 AM CDT COMPREHENSIVE METABOLIC PANEL Routine 04/10/2025 11:05 AM CDT CBC WITH AUTO DIFFERENTIAL Routine 04/10/2025 11:05 AM CDT EGFR Routine 02/01/2025 3:17 PM CDT DIFFERENTIAL AUTO Routine 02/01/2025 3:1 7 PM CDT CRP (ACUTE PHASE) Routine 02/01/2025 3:1 7 PM CDT ERYTHROCYTE SEDIMENTATION RATE Routine 02/01/2025 3:17 PM CDT COMPREHENSIVE METABOLIC PANEL Routine 02/01/2025 3:17 PM CDT CBC WITH AUTO DIFFERENTIAL Routine 02/01/2025 3:17 PM CDT COLONOSCOPY 11/25/2018 10:21 AM CDT from Last 3 Months or Most Recently Relevant to Health Maintenance Results * eGFR (04/10/2025 11:05 AM CDT) eGFR 70 >=60 mL/min/1. 73 m2 Comment: Interpretive Data Reference Interval Normal >/= 90 [...] of Race in Diagnosing Kidney Disease, JASN 202). The CKD-EPI equation should not be used for patients with unstable renal function and has not been validated in children and those over 70. Current interpretive data was last reviewed 2021. Blood 04/10/2025 11:0 5 AM CDT 04/10/2025 3:16 PM CDT us Sarai Gonzalez MD LAB BLOOD ORDERABLES Final Resul t [facility] [address] [place] [address] * (ABNORMAL) Differential, auto (04/10/2025 11:05 AM CDT) Neutrophil abs 7.38(H) 1.50 - 6.50 K/cumm Imm gran abs 0.05 0.00 - 0.10 K/cumm [facility] Lymphocyte abs 1.33 0.80 - 3.30 K/cumm [facility] Monocyte abs 0.48 0.20 - 0.80 K/cumm [facility] Eosinophil abs 0.06 0.00 - 0.50 K/cumm [facility] Basophil abs 0.05 0.00 - 0.10 K/cumm [facility] Neutrophil pct 79.1 % [facility] Comment: Interpretive Data Percent cell count reference ranges are not reported, since discordance with absolute values may lead to misinterpretation of CBC data. Current Interpretive Data was last revised on 2017. Imm gran pct 0.5 % [facility] Comment: Interpretive Data Percent cell count reference ranges are not reported, since discordance with absolute values may lead to misinterpretation of CBC data. Current Interpretive Data was last revised on 2017. Lymphocyte pct 14.2 % [facility] Comment: Interpretive Data Percent cell count reference ranges are not reported, since discordance with absolute values may lead to misinterpretation of CBC data. Current Interpretive Data was last revised on 2017. Monocyte pct 5.1 % [facility] Comment: Interpretive Data Percent cell count reference ranges are not reported, since discordance with absolute values may lead to misinterpretation of CBC data. Current Interpretive Data was last revised on 2017. Eosinophil pct 0.6 % [facility] Comment: Interpretive Data Percent cell count reference ranges are not reported, since discordance with absolute values may lead to misinterpretation of CBC data. Current Interpretive Data was last revised on 2017. Basophil pct 0.5 % [facility] Comment: Interpretive Data Percent cell count reference ranges are not reported, since discordance with absolute values may lead to misinterpretation of CBC data. Current Interpretive Data was last revised on 2017. Blood 04/10/2025 11:0 5 AM CDT 04/10/2025 2:35 PM CDT us Sarai Gonzalez MD LAB BLOOD ORDERABLES Final Resul t Performing Organization Address [facility]/ZIP Co de Phone Number [facility] [address] [place] [address] * (ABNORMAL) CBC with auto differential (04/10/2025 11:05 AM CDT) WBC 9.35 3.80 - 9.90 K/cumm Hgb 16.5(H) 11.9 - 15.5 g/dL [facility] Hct 50.9(H) 35.6 - 45.5 % [facility] Plt 225 150 - 400 K/cumm [facility] MPV 9.7 9.1 - 12.3 fL [facility] RBC 5.23(H) 3.90 - 5.20 M/cumm [facility] MCV 97.3(H) 81.3 - 96.4 fL [facility] MCH 31.5 27.1 - 33.3 pg [facility] MCHC 32.4 32.3 - 35.7 g/dL [facility] RDW CV 13.1 11.1 - 14.9 % [facility] RDW SD 47.1 35.7 - 48.1 fL [facility] NRBC abs 0.00 0.00 - 0.01 K/cumm [facility] Blood 04/10/2025 11:0 5 AM CDT 04/10/2025 2:35 PM CDT us Sarai Gonzalez MD LAB BLOOD ORDERABLES Final Resul t Performing Organization Address City/[facility]/ZIP Co de Phone Number [facility] [address] Department Immediately [place], [place] [id number] * Erythrocyte sedimentation rate (04/10/2025 11:05 AM CDT) Pathologist [facility] Erythrocyte sedimentation rate 7 1 - 30 mm/hr Blood 04/10/2025 11:0 5 AM CDT 04/10/2025 2:35 PM CDT us Sarai Gonzalez MD LAB BLOOD ORDERABLES Final Resul t Performing Organization Address City/[facility]/ZIP Co de Phone Number [facility] [address] [facility] [place] [address] * CRP (acute phase) (04/10/2025 11:05 AM CDT) [facility] CRP 6.7 <=10.0 mg/L Blood 04/10/2025 11:0 5 AM CDT 04/10/2025 3:16 PM CDT us Sarai Gonzalez MD LAB BLOOD ORDERABLES Final Resul t Performing Organization Address [facility] Co de Phone Number [facility] [address] [facility] [employer] [place] [address] * (ABNORMAL) Comprehensive metabolic panel (04/10/2025 11:05 AM CDT) [facility] Sodium 141 135 - 145 mmol/L Potassium, pl 4.3 3.3 - 4.9 mmol/L [facility] Chloride 102 97 - 110 mmol/L [facility] CO2 23 22 - 32 mmol/L [facility] Anion gap 16(H) 2 - 15 mmol/L [facility] BUN 9 6 - 25 mg/dL [facility] Creatinine 0.90 0.60 - 1.10 mg/dL [facility] Glucose 134 70 - 199 mg/dL [facility] Comment: Interpretive Data Fasting glucose >/= 126 mg/dl [...] classification and Diagnosis of Diabetes Diabetes Care 202; 46: S19-S40. Current interpretive data was last revised 2022. Calcium 9.4 8.5 - 10.3 mg/dL [facility] Bilirubin, total 0.5 0.1 - 1.2 mg/dL [facility] Protein, pl 6.9 6.5 - 8.5 g/dL [facility] Albumin 4.6 3.5 - 5.0 g/dL [facility] Alk phos 98 40 - 130 Units/L [facility] ALT 21 7 - 45 Units/L [facility] AST 20 10 - 45 Units/L [facility] Blood 04/10/2025 11:0 5 AM CDT 04/10/2025 3:16 PM CDT us Sarai Gonzalez MD LAB BLOOD ORDERABLES Final Resul t [facility] [address] [place] [address] * (ABNORMAL) eGFR (02/01/2025 3:17 PM CDT) eGFR 57(L) >=60 mL/min/1. 73 m2 Comment: Interpretive Data Reference Interval Normal >/= 90 [...] of Race in Diagnosing Kidney Disease, JASN 202). The CKD-EPI equation should not be used for patients with unstable renal function and has not been validated in children and those over 70. Current interpretive data was last reviewed 2021. Blood 02/01/2025 3:17 PM CDT 02/01/2025 5:59 PM CDT us Sarai Gonzalez MD LAB BLOOD ORDERABLES Final Resul t [facility] [address] [place] [address] * Differential, auto (02/01/2025 3:17 PM CDT) Neutrophil abs 6.13 1.50 - 6.50 K/cumm Imm gran abs 0.02 0.00 - 0.10 K/cumm [facility] Lymphocyte abs 1.00 0.80 - 3.30 K/cumm [facility] Monocyte abs 0.30 0.20 - 0.80 K/cumm [facility] Eosinophil abs 0.02 0.00 - 0.50 K/cumm [facility] Basophil abs 0.03 0.00 - 0.10 K/cumm [facility] Neutrophil pct 81.7 % [facility] Comment: Interpretive Data Percent cell count reference ranges are not reported, since discordance with absolute values may lead to misinterpretation of CBC data. Current Interpretive Data was last revised on 2017. Imm gran pct 0.3 % [facility] Comment: Interpretive Data Percent cell count reference ranges are not reported, since discordance with absolute values may lead to misinterpretation of CBC data. Current Interpretive Data was last revised on 2017. Lymphocyte pct 13.3 % [facility] Comment: Interpretive Data Percent cell count reference ranges are not reported, since discordance with absolute values may lead to misinterpretation of CBC data. Current Interpretive Data was last revised on 2017. Monocyte pct 4.0 % [facility] Comment: Interpretive Data Percent cell count reference ranges are not reported, since discordance with absolute values may lead to misinterpretation of CBC data. Current Interpretive Data was last revised on 2017. Eosinophil pct 0.3 % [facility] Comment: Interpretive Data Percent cell count reference ranges are not reported, since discordance with absolute values may lead to misinterpretation of CBC data. Current Interpretive Data was last revised on 2017. Basophil pct 0.4 % [facility] Comment: Interpretive Data Percent cell count reference ranges are not reported, since discordance with absolute values may lead to misinterpretation of CBC data. Current Interpretive Data was last revised on 2017. Blood 02/01/2025 3:17 PM CDT 02/01/2025 6:00 PM CDT us Sarai Gonzalez MD LAB BLOOD ORDERABLES Final Resul t Performing Organization Address City/[facility]/ZIP Co de Phone Number [facility] [address] Department [place] [address] * (ABNORMAL) CBC with auto differential (02/01/2025 3:17 PM CDT) WBC 7.50 3.80 - 9.90 K/cumm Hgb 15.8(H) 11.9 - 15.5 g/dL [facility] Hct 47.0(H) 35.6 - 45.5 % [facility] Plt 234 150 - 400 K/cumm [facility] MPV 9.8 9.1 - 12.3 fL [facility] RBC 4.79 3.90 - 5.20 M/cumm [facility] MCV 98.1(H) 81.3 - 96.4 fL [facility] MCH 33.0 27.1 - 33.3 pg [facility] MCHC 33.6 32.3 - 35.7 g/dL [facility] RDW CV 11.9 11.1 - 14.9 % [facility] RDW SD 43.5 35.7 - 48.1 fL [facility] NRBC abs 0.00 0.00 - 0.01 K/cumm [facility] Blood 02/01/2025 3:17 PM CDT 02/01/2025 6:00 PM CDT us Sarai Gonzalez MD LAB BLOOD ORDERABLES Final Resul t [facility] [address] [facility] [place] [place] [address] * Erythrocyte sedimentation rate (02/01/2025 3:17 PM CDT) [facility] Erythrocyte sedimentation rate 9 1 - 30 mm/hr Blood 02/01/2025 3:17 PM CDT 02/01/2025 6:00 PM CDT us Sarai Gonzalez MD LAB BLOOD ORDERABLES Final Resul t Performing Organization Address [facility] de Phone Number [facility] [address] [place] [address] * CRP (acute phase) (02/01/2025 3:17 PM CDT) [facility] CRP 6.0 <=10.0 mg/L Blood 02/01/2025 3:17 PM CDT 02/01/2025 5:59 PM CDT us Sarai Gonzalez MD LAB BLOOD ORDERABLES Final Resul t Performing Organization Address [facility] de Phone Number [facility] [address] [place] [address] * (ABNORMAL) Comprehensive metabolic panel (02/01/2025 3:17 PM CDT) [facility] Sodium 142 135 - 145 mmol/L Potassium, pl 3.9 3.3 - 4.9 mmol/L [facility] Chloride 101 97 - 110 mmol/L [facility] CO2 24 22 - 32 mmol/L [facility] Anion gap 17(H) 2 - 15 mmol/L [facility] BUN 8 6 - 25 mg/dL [facility] Creatinine 1.07 0.60 - 1.10 mg/dL [facility] Glucose 151 70 - 199 mg/dL [facility] Comment: Interpretive Data Fasting glucose >/= 126 mg/dl [...] Current interpretive data was last revised 2022. Calcium 9.9 8.5 - 10.3 mg/dL [facility] Bilirubin, total 0.6 0.1 - 1.2 mg/dL [facility] Protein, pl 7.6 6.5 - 8.5 g/dL [facility] Albumin 4.7 3.5 - 5.0 g/dL [facility] Alk phos 91 40 - 130 Units/L [facility] ALT 20 7 - 45 Units/L [facility] AST 26 10 - 45 Units/L [facility] Blood 02/01/2025 3:17 PM CDT 02/01/2025 5:59 PM CDT us Sarai Gonzalez MD LAB BLOOD ORDERABLES Final Resul t [facility] [address] [place] [address] * COLONOSCOPY (11/25/2018 10:21 AM CDT) Anatomical Region Laterality Modality Other Narrative Procedure Note Haris Fenton MD - 11/25/2018 10:21 AM CDT ENDOSCOPY LAB Patient Name: Raina Maxwell Procedure Date: 11/25/2018 10:21 AM Admit Type: Outpatient Room: [facility] Date of : 1955 Instrument Name: [id number] Gender: Female Note Status: Finalized Procedure: Colonoscopy [...] the bowel preparation was evaluated usingthe BBPS ([place] Bowel Preparation Scale) with scores of: Right [...] - [facility] The signs and symptoms of potential delayedcomplications were discussed with the patient. Return to normal activities tomorrow. Written discharge instructionswere provided to the patient. - Resume previous diet. - Continue present medications. - Await pathology results. - Pathology results will be sent to you by mail [email or web address] business days. Please call if you do not receivethese. - Repeat colonoscopy in 3 years for surveillance. - Return to endoscopist PRN. Attending Participation: I personally performed the entire procedure without the assistance ofa fellow, resident or rn medical surgical. Electronically signed by Haris Fenton Haris Fenton MD 11/25/2018 11:10:12 AM Number of Addenda: 0 Note Initiated On: 11/25/2018 10:21 AM Haris Fenton MD ENDOSCOPY PROCEDURES Final Result from Last 3 Months or Most Recently Relevant to Health Maintenance Insurance BLUE ACCESS OOS BLUE ACCESS OOS BLUE ACCESS OOS Advance Directives For more information, please contact: [phone] * Full Code (Latest Code Status on File) Date Activated Date Inactivated Comments 11/25/2018 9:49 AM 11/25/2018 3:38 PM Care Teams Mowing Machine Operator Relationship Specialty Start Date End Date Renita Mahmood MD [address] [place] [address] PCP - cmm inspector Obstetrics and Gynecology 10/22/18 Alejandro Stanton MD [address] [place] [address] [address] [address] PCP - General Family Medicine 09/15/24 Sarai Gonzalez MD [address] [place] [address] Referring Physician Rheumatology 12/20/18
--- OUTSIDE RECORDS SUMMARY | 2025-04-17 11:00 | XMS_ITS | Clinical Summary ---
Author Organization [facility] Address [address] [place] [address] Phone Care Team Providers Care Clicking Machine Operator Name Role Phone Alejandro Stanton Primary Care Provider [phone] Allergies Active Allergy Reactions Criticality Noted Date Comments Penicillins Other (see Comments),Rash,Unknown Low 1 Unsure Medications predniSONE (DELTASONE) 10 MG Tablet Take 10 mg by mouth daily. Active cetirizine (ZyrTEC) 10 MG Tablet Take 10 mg by mouth as needed. Active azelastine (ASTELIN) 0.1 % Solution 2 Sprays by Nasal route daily. Use in each nostril as directed Active Cipro 500 MG Tablet Take 1 Tablet by mouth every 12 hours. 01/26/2025 Active Crestor 20 MG Tablet Take 20 mg by mouth daily. 12/19/2024 Active Azelastine-Flut icasone 137-50 MCG/ACT Suspension by Nasal route. Active Breztri Aerosphere 160-9-4.8 MCG/ACT Aerosol take 2 Puffs by inhalation. 11/16/2024 Active Active Problems Problem Noted Date Diagnosed Date Elevated blood pressure reading 01/30/2025 Lung nodule 08/22/2024 Encounters Date Type Department Care Team Description 01/30/2025 11:30 AM CDT [facility] [address] [address] Josue Bangura MD Lung nodule (Primary Dx) 01/30/2025 Travel 01/20/2025 Telephone [facility] [place] [address] [place] [phone] Josue Bangura MD Canopy Call / Ct scan results from Last 3 Months Family History Medical History Relation Name Comments Heart Attack Mother Heart Disease Mother Diabetes Sister 1 Relation Name Status Comments Child 1 Alive Child 2 Alive Father Mother Sister 1 Alive Sister 2 Alive Social History Tobacco Use Types Packs/Day Years Used Date Smoking Tobacco: Every Day Cigarettes Smokeless Tobacco: Never Tobacco Cessation:Ready to Q uit: Yes; Counseling Given: Yes Alcohol Use Standard Drinks/Week Comments Yes 7 (1 standard drink = 0.6 oz pur e alcohol) Comments Unknown Sex and Gender Information Value Date Recorded Sex Assigned at Not on file Legal Sex Female 9:18 PM CDT Gender Identity Not on file Sexual Orientation Not on file Last Filed Vital Signs Vital Sign Reading Time Taken Comments Blood Pressure 170/90 01/30/2025 11:27 AM CDT Pulse 106 01/30/2025 11:27 AM CDT Temperature 36.3 C (97.3 F) 01/30/2025 11:27 AM CDT Respiratory Rate 18 01/30/2025 11:27 AM CDT Oxygen Saturation 96% 01/30/2025 11:27 AM CDT Inhaled Oxygen Concentration - - Weight 63.5 kg (140 lb) 01/30/2025 11:27 AM CDT Height 162.6 cm (5' 4) 01/30/2025 11:27 AM CDT Body Mass Index 24.03 01/30/2025 11:27 AM CDT Plan of Treatment Upcoming Encounters Date Type Department Care Team (Late st Contact Info) Description 05/01/2025 11:30 AM CDT Office Visit [facility] [place] [address] [place] [phone] Josue Bangura MD [address] [place] [address] [place] [id number] Health Maintenance Due Date Last Done Comments DEXA Bone Density 1955 Hepatitis C Virus (HCV) Screening 1955 Cologuard 2002 Zoster Immunization (1 of 2) 2007 Immunochemical Fecal Occult Blood 05/05/2017 05/05/2016 Mammogram 07/18/2023 07/18/2022, 07/18/2022 SARS-COV-2 Immunization ( season) 2024 09/14/2021, 01/01/2021, 12/11/2020 Influenza Immunization (#1) 2025 10/0 09/2021, 06/14/2021, 05/30/2020, Additional history exists Colonoscopy 11/25/2028 11/25/2018 Colorectal Cancer Screening 11/25/2028 Respiratory Syncytial Virus (RSV) Immunization (Adult) (1 - 1-dose 75+ series) 02/22/2032 TdaP Immunization Completed 12/19/2021 Pneumococcal Immunization (50+ years) Completed 12/24/2022, 11/10/2019 Hepatitis B Immunization Aged Out No longer eligible based on patient's age to complete this topic Human Papillomavirus (HPV) Immunization Aged Out No longer eligible based on patient's age to complete this topic Meningococcal Immunization (ACWY) Aged Out No longer eligible based on patient's age to complete this topic Rotavirus Immunization Aged Out No lo nger eligible based on patient's age to complete this topic Insurance [facility] Care Teams Clicking Machine Operator Relationship Specialty Start Date End Date Maximino Alejandro [address] [place] [address] PCP - General Family Medicine 08/15/24
--- OUTSIDE RECORDS SUMMARY | 2025-04-17 11:00 | XMS_ITS | Clinical Summary ---
Author Organization [facility] Center Address [address] [place] [address] Care Team Providers Care Marketing Professional Name Role Phone Renita Mahmood MD Unavailable Sarai Gonzalez MD Unavailable Alejandro Stanton MD Primary Care Provider [phone] Allergies Active Allergy Reactions Criticality Noted Date [...] (12/09/2018): Added automatically from request for surgery [id number] Special screening for malign ant neoplasms, colon 10/22/2018 11/21/2024 Overview (12/10/2018): T-A; recall colonocsopy 5 years 2023 Liver lesion 08/26/2018 11/21/2024 Pelvic congestion 08/26/2018 11/21/2024 Nausea 08/02/2018 11/21/2024 Night sweats 08/02/2018 11/21/2024 Rash 08/02/2018 11/21/2024 Genital herpes 06/16/2014 11/21/2024 Encounters Date Type Department Care Team Description 04/10/2025 11:00 AM CDT Lab [facility] [id number] [place] [address] 02/01/2025 3:15 PM CDT Lab [facility] [address] [place] [address] from Last 3 Months Immunizations Immunization Administration Dates Next Due Pfizer SARS-CoV-2 Monovalent Vaccination (12+ Yrs) PURPLE 01/01/2021,12/11/2020 Surgical History Surgery Date Site/Laterality Comments TUBAL LIGATION TONSILLECTOMY COLONOSCOPY 11/25/2018 T-A; recall colonoscopy 2023 BREAST SURGERY TEMPORAL ARTERY BIOPSY / LIGATION 12/13/2018 Right per path report: temporal arteritis Medical History Medical History Date Comments Emphysema of lung Anemia given iron infus ion Allergy Giant [...] Visit 65+ 2022 Breast Cancer Screening-Mammogram 07/18/2023 022 Covid-19 Vaccine (4 - 2023-2 5 season) 2024 09/14/2021, 01/01/2021, 12/11/2020 Influenza Vaccine (#1) 2025 2, 06/14/2021, 05/30/2020, Additional history exists Colon Cancer Screening-Colonoscopy 11/25/2028 11/25/2018 DTaP/Tdap/Td Vaccine (2 - Td or Tdap) 12/20/2031 12/19/2021 Colon Cancer Screening-CT Colonography Discontinued 11/25/2018 Colon Cancer Screening-DNA Stool Discontinued 11/26/19 Colon Cancer Screening-FIT Discontinued 11/25/2018 Colon Cancer [...] MD LAB BLOOD ORDERABLES Final Resul t [facility] [address] Department of Laboratories [place], [place] [id number] * (ABNORMAL) Differential, auto (04/10/2025 11:05 AM CDT) Neutrophil abs 7.38(H) 1.50 - 6.50 K/cumm Imm gran abs 0.05 0.00 - 0.10 K/cumm [facility] Lymphocyte abs 1.33 0.80 - 3.30 K/cumm [facility] Monocyte abs 0.48 0.20 - 0.80 K/cumm [facility] Eosinophil abs 0.06 0.00 - 0.50 K/cumm [facility] Basophil abs 0.05 0.00 - 0.10 K/cumm [facility] Neutrophil pct 79.1 % [facility] Comment: Interpretive Data Percent cell count reference ranges are not reported, since discordance with absolute values may lead to misinterpretation of CBC data. Current Interpretive Data was last revised on 2017. Imm gran pct 0.5 % [facility] Comment: Interpretive Data Percent cell count reference ranges are not reported, since discordance with absolute values may lead to misinterpretation of CBC data. Current Interpretive Data was last revised on 2017. Lymphocyte pct 14.2 % [facility] Comment: Interpretive Data Percent cell count reference ranges are not reported, since discordance with absolute values may lead to misinterpretation of CBC data. Current Interpretive Data was last revised on 2017. Monocyte pct 5.1 % [facility] Comment: Interpretive Data Percent cell count reference ranges are not reported, since discordance with absolute values may lead to misinterpretation of CBC data. Current Interpretive Data was last revised on 2017. Eosinophil pct 0.6 % [facility] Comment: Interpretive Data Percent cell count reference ranges are not reported, since discordance with absolute values may lead to misinterpretation of CBC data. Current Interpretive Data was last revised on 2017. Basophil pct 0.5 % [facility] Comment: Interpretive Data Percent cell count reference ranges are not reported, since discordance with absolute values may lead to misinterpretation of CBC data. Current Interpretive Data was last revised on 2017. Blood 04/10/2025 11:0 5 AM CDT 04/10/2025 2:35 PM CDT us Sarai Gonzalez MD LAB BLOOD ORDERABLES Final Resul t Performing Organization Address [facility] de Phone Number [facility] [address] Department [place] [address] * (ABNORMAL) CBC with auto differential (04/10/2025 11:05 AM CDT) WBC 9.35 3.80 - 9.90 K/cumm Hgb 16.5(H) 11.9 - 15.5 g/dL [facility] Hct 50.9(H) 35.6 - 45.5 % [facility] Plt 225 150 - 400 K/cumm [facility] MPV 9.7 9.1 - 12.3 fL [facility] RBC 5.23(H) 3.90 - 5.20 M/cumm [facility] MCV 97.3(H) 81.3 - 96.4 fL [facility] MCH 31.5 27.1 - 33.3 pg [facility] MCHC 32.4 32.3 - 35.7 g/dL [facility] RDW CV 13.1 11.1 - 14.9 % [facility] RDW SD 47.1 35.7 - 48.1 fL [facility] NRBC abs 0.00 0.00 - 0.01 K/cumm [facility] Blood 04/10/2025 11:0 5 AM CDT 04/10/2025 2:35 PM CDT us Sarai Gonzalez MD LAB BLOOD ORDERABLES Final Resul t Performing Organization Address [facility] Co de Phone Number [facility] [address] Department [place] [address] * Erythrocyte sedimentation rate (04/10/2025 11:05 AM CDT) Pathologist [facility] Erythrocyte sedimentation rate 7 1 - 30 mm/hr Blood 04/10/2025 11:0 5 AM CDT 04/10/2025 2:35 PM CDT us Sarai Gonzalez MD LAB BLOOD ORDERABLES Final Resul t Performing Organization Address City/[facility]/ZIP Co de Phone Number [facility] [address] Department [place] [address] * CRP (acute phase) (04/10/2025 11:05 AM CDT) [facility] CRP 6.7 <=10.0 mg/L Blood 04/10/2025 11:0 5 AM CDT 04/10/2025 3:16 PM CDT Sarai Gonzalez MD LAB BLOOD ORDERABLES Final Resul t Performing Organization Address [facility] de Phone Number [facility] [address] Department [place] [address] * (ABNORMAL) Comprehensive metabolic panel (04/10/2025 11:05 AM CDT) [facility] Sodium 141 135 - 145 mmol/L Potassium, pl 4.3 3.3 - 4.9 mmol/L [facility] Chloride 102 97 - 110 mmol/L [facility] CO2 23 22 - 32 mmol/L [facility] Anion gap 16(H) 2 - 15 mmol/L [facility] BUN 9 6 - 25 mg/dL [facility] Creatinine 0.90 0.60 - 1.10 mg/dL [facility] Glucose 134 70 - 199 mg/dL [facility] Comment: Interpretive Data Fasting glucose >/= 126 [...] 2022. Calcium 9.4 8.5 - 10.3 mg/dL [facility] Bilirubin, total 0.5 0.1 - 1.2 mg/dL [facility] Protein, pl 6.9 6.5 - 8.5 g/dL [facility] Albumin 4.6 3.5 - 5.0 g/dL [facility] Alk phos 98 40 - 130 Units/L [facility] ALT 21 7 - 45 Units/L [facility] AST 20 10 - 45 Units/L [facility] Blood 04/10/2025 11:0 5 AM CDT 04/10/2025 3:16 PM CDT us Sarai Gonzalez MD LAB BLOOD ORDERABLES Final Resul t Performing Organization Address [facility]/ZIP Co de Phone Number [facility] [address] Department [place] [address] * (ABNORMAL) eGFR (02/01/2025 3:17 PM CDT) [...] ORDERABLES Final Resul t Performing Organization Address City/[facility]/ZIP Co de Phone Number [facility] [address] Department [place] [address] * Differential, auto (02/01/2025 3:17 PM CDT) Neutrophil abs 6.13 1.50 - 6.50 K/cumm Imm gran abs 0.02 0.00 - 0.10 K/cumm [facility] Lymphocyte abs 1.00 0.80 - 3.30 K/cumm [facility] Monocyte abs 0.30 0.20 - 0.80 K/cumm [facility] Eosinophil abs 0.02 0.00 - 0.50 K/cumm [facility] Basophil abs 0.03 0.00 - 0.10 K/cumm [facility] Neutrophil pct 81.7 % [facility] Comment: Interpretive Data Percent cell count reference ranges are not reported, since discordance with absolute values may lead to misinterpretation of CBC data. Current Interpretive Data was last revised on 2017. Imm gran pct 0.3 % [facility] Comment: Interpretive Data Percent cell count reference ranges are not reported, since discordance with absolute values may lead to misinterpretation of CBC data. Current Interpretive Data was last revised on 2017. Lymphocyte pct 13.3 % [facility] Comment: Interpretive Data Percent cell count reference ranges are not reported, since discordance with absolute values may lead to misinterpretation of CBC data. Current Interpretive Data was last revised on 2017. Monocyte pct 4.0 % [facility] Comment: Interpretive Data Percent cell count reference ranges are not reported, since discordance with absolute values may lead to misinterpretation of CBC data. Current Interpretive Data was last revised on 2017. Eosinophil pct 0.3 % [facility] Comment: Interpretive Data Percent cell count reference ranges are not reported, since discordance with absolute values may lead to misinterpretation of CBC data. Current Interpretive Data was last revised on 2017. Basophil pct 0.4 % [facility] Comment: Interpretive Data Percent cell count reference ranges are not reported, since discordance with absolute values may lead to misinterpretation of CBC data. Current Interpretive Data was last revised on 2017. Blood 02/01/2025 3:17 PM CDT 02/01/2025 6:00 PM CDT us Sarai Gonzalez MD LAB BLOOD ORDERABLES Final Resul t Performing Organization Address [facility]/ZIP Co de Phone Number [facility] [address] [employer] [place] [address] * (ABNORMAL) CBC with auto differential (02/01/2025 3:17 PM CDT) Pathologist [facility] WBC 7.50 3.80 - 9.90 K/cumm Hgb 15.8(H) 11.9 - 15.5 g/dL [facility] Hct 47.0(H) 35.6 - 45.5 % [facility] Plt 234 150 - 400 K/cumm [facility] MPV 9.8 9.1 - 12.3 fL [facility] RBC 4.79 3.90 - 5.20 M/cumm [facility] MCV 98.1(H) 81.3 - 96.4 fL [facility] MCH 33.0 27.1 - 33.3 pg [facility] MCHC 33.6 32.3 - 35.7 g/dL [facility] RDW CV 11.9 11.1 - 14.9 % [facility] RDW SD 43.5 35.7 - 48.1 fL [facility] NRBC abs 0.00 0.00 - 0.01 K/cumm [facility] Blood 02/01/2025 3:17 PM CDT 02/01/2025 6:00 PM CDT us Sarai Gonzalez MD LAB BLOOD ORDERABLES Final Resul t [facility] [address] Department [address] [place] [address] * Erythrocyte sedimentation rate (02/01/2025 3:17 PM CDT) Pathologist [facility] Erythrocyte sedimentation rate 9 1 - 30 mm/hr Blood 02/01/2025 3:17 PM CDT 02/01/2025 6:00 PM CDT us Sarai Gonzalez MD LAB BLOOD ORDERABLES Final Resul t Performing Organization Address City/[facility]/ZIP Co de Phone Number [facility] [address] [facility] [address] [place] [address] * CRP (acute phase) (02/01/2025 3:17 PM CDT) [facility] CRP 6.0 <=10.0 mg/L Blood 02/01/2025 3:17 PM CDT 02/01/2025 5:59 PM CDT us Sarai Gonzalez MD LAB BLOOD ORDERABLES Final Resul t Performing Organization Address [facility] de Phone Number [facility] [address] [facility] [address] [place] [address] * (ABNORMAL) Comprehensive metabolic panel (02/01/2025 3:17 PM CDT) [facility] Sodium 142 135 - 145 mmol/L Potassium, pl 3.9 3.3 - 4.9 mmol/L [facility] Chloride 101 97 - 110 mmol/L [facility] CO2 24 22 - 32 mmol/L [facility] Anion gap 17(H) 2 - 15 mmol/L [facility] BUN 8 6 - 25 mg/dL [facility] Creatinine 1.07 0.60 - 1.10 mg/dL [facility] Glucose 151 70 - 199 mg/dL [facility] Comment: Interpretive Data Fasting glucose >/= 126 [...] 2022. Calcium 9.9 8.5 - 10.3 mg/dL [facility] Bilirubin, total 0.6 0.1 - 1.2 mg/dL [facility] Protein, pl 7.6 6.5 - 8.5 g/dL [facility] Albumin 4.7 3.5 - 5.0 g/dL [facility] Alk phos 91 40 - 130 Units/L [facility] ALT 20 7 - 45 Units/L [facility] AST 26 10 - 45 Units/L [facility] Blood 02/01/2025 3:17 PM CDT 02/01/2025 5:59 PM CDT us Sarai Gonzalez MD LAB BLOOD ORDERABLES Final Resul t [facility] [address] Department [place] [address] * COLONOSCOPY (11/25/2018 10:21 AM CDT) Anatomical Region Laterality Modality Other Narrative Procedure Note Haris Fenton MD - 11/25/2018 10:21 AM CDT ENDOSCOPY LAB Patient Name: Raina Maxwell Procedure Date: 11/25/2018 10:21 AM Admit Type: Outpatient Room: [facility] 2 Date of : 1955 Instrument [...] the bowel preparation was evaluated usingthe BBPS ([place] Bowel Preparation Scale) with scores of: Right [...] - [facility] The signs and symptoms of potential delayedcomplications were discussed with the patient. Return to normal activities tomorrow. Written discharge instructionswere provided to the patient. - Resume previous diet. - Continue present medications. - Await pathology results. - Pathology results will be sent to you by mail [email or web address] business days. Please call if you do not receivethese. - Repeat colonoscopy in 3 years for surveillance. - Return to endoscopist PRN. Attending Participation: I personally performed the entire procedure without the assistance ofa fellow, resident or salesperson surgical appliances. Electronically signed by Haris Fenton Haris Fenton MD 11/25/2018 11:10:12 AM Number of Addenda: 0 Note Initiated On: 11/25/2018 10:21 AM Haris Fenton MD ENDOSCOPY PROCEDURES Final Result from Last 3 Months or Most Recently Relevant to Health Maintenance Insurance [employer] ACCESS [employer] ACCESS OOS Advance Directives For more information, please contact: [phone] * Full Code (Latest Code Status on File) Date Activated Date Inactivated Comments 11/25/2018 9:49 AM 11/25/2018 3:38 PM Care Teams Marketing Professional Relationship Specialty Start Date End Date Renita Mahmood MD [address] [place] [address] 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 [address] PCP - General Family Medicine 09/15/24 Sarai Gonzalez MD [address] [facility] [address] [place] [address] Referring Physician Rheumatology 12/20/18
== END 2025-04-17 10:33 | disposition home or self-care (01) ==
PROVIDERS: PCP Emergency Medicine; Visit Provider Internal Medicine Hematology & Oncology
DX: J98.4 Other disorders of lung (principal); R91.1 Solitary pulmonary nodule
CPT/HCPCS: 71250

== ENCOUNTER 2025-05-03 01:43 | Day surgery (SDC) | payer BC, SELFPAY ==
[2025-04-24 13:04] VITALS: BMI 22.3
[2025-05-03 12:22] VITALS: BP 128/83; PULSE 116; RESP 18; TEMP 36.2; O2SAT 99; BMI 21.9
[2025-05-03] MEDS: LACTATED RINGERS 1,000 ML 150 ML IV CONT (12:25)
--- NOTE | 2025-05-03 12:35 | P.PNAN_ITS ---
Anes - Initial Pre Proc Eval Procedure: Operation Date: 05/03/25 13:30 Proposed Procedures p EGD & Screening Colonoscopy - Roger Hernandez MD Date/Time: 05/03/25 12:35 Surgeon: Roger Hernandez MD Pre Op Diagnosis: Anorexia Patient Data Age: 70 Gender: F Height: 1.63 m Weight: 58 kg Last Vital Signs Temp 36.2 C L 05/03/25 12:22 Pulse 116 H 05/03/25 12:22 Resp 18 05/03/25 12:22 BP 128/83 05/03/25 12:22 Pulse Ox 99 05/03/25 12:22 O2 Del Method Room Air 05/03/25 12:22 Allergies Allergy/AdvReac Type Severity Reaction Status Date / Time aspirin Allergy Itching Verified 04/24/25 13:03 Penicillins Allergy Unknown Verified 04/24/25 13:03 Home Medications ?Medication ?Instructions ?Recorded ?Confirmed ?Type azelastine 137 mcg (0.1 %) nasal 1 spray intranasal DA JENNIFER 12/15/24 05/03/25 History spray budesonide 160 mcg-glycopyr 9 2 inh inhalation DAILY 0 12/15/24 05/03/25 History mcg-formot 4.8 mcg/actuation HFA inhaler (Breztri Aerosphere) prednisone 5 mg tablet 5 mg PO DAILY 12/15/2405/03 History Patient hx anesthesia problems: none Family hx anesthesia problems: none Results Review: All pre-operative results and documents have been reviewed as part of the pre- operative evaluation. [facility] Past Medical History Medical History (Updated 05/03/25 @ 12:35 by Jorge Luis Horta MD) Tobacco abuse Temporal arteritis Dyslipidemia CAD (coronary artery disease) Surgical History Surgical History No significant past surgical history Social History Social History Smoking packs per day: 0.5 Smoking cigarettes per day: 10.0 Years smoked: 55 Smoking pack-years: 27.50 Smoking status: Current every day smoker Tobacco type: cigarettes Alcohol intake: current Drinks per week: 7 Substance use: never Substance use type: does not use Living arrangements: with family Spiritual care concerns: No Anes - Eval Final PreProcedure Day of Procedure 05/03/25 12:35 Patient weight: normal Heart: regular rate and rhythm Lungs: clear to auscultation Airway: Mallampati scale class II Neurological: alert and oriented Last oral intake: >/= 8 hours ASA classification: III Anesthetic plan: proceed Anesthesia type and monitoring: general GIVS and standard monitoring Results Review: All pre-operative results and documents have been reviewed as part of the pre- operative evaluation. Informed Consent: The patient's anesthetic plan and its attendant risks and benefits were discussed with the patient/family/POA. Questions were solicited and answers provided to the satisfaction of the patient/family/POA.
--- NOTE | 2025-05-03 13:08 | P.HP_ITS ---
History of Present Illness History of Present Illness Consent: Risks, benefits, and alternatives have been discussed and questions answered. Patient agrees to proceed with procedure. Chief complaint: Anorexia Narrative: Raina Maxwell is a 70 year old female with decrease appetite and weight loss, last colonoscopy 5-6 years ago with polyp Review of Systems Review of Systems: All systems reviewed & are unremarkable except as noted in HPI and below PMFSH Past Medical History Medical History (Updated 05/03/25 @ 13:08 by Roger Hernandez MD) Colon polyp Decrease in appetite Tobacco abuse Temporal arteritis Dyslipidemia CAD (coronary artery disease) Surgical History Surgical History No significant past surgical history Social History Social History Smoking packs per day: 0.5 Smoking cigarettes per day: 10.0 Years smoked: 55 Smoking pack-years: 27.50 Smoking status: Current every day smoker Tobacco type: cigarettes Alcohol intake: current Drinks per week: 7 Substance use: never Substance use type: does not use Living arrangements: with family Spiritual care concerns: No Meds Home Medications and Allergies Home Medications ?Medication ?Instructions ?Recorded ?Confirmed ?Type azelastine 137 mcg (0.1 %) nasal 1 spray intranasal DA JENNIFER 12/15/24 05/03/25 History spray budesonide 160 mcg-glycopyr 9 2 inh inhalation DAILY 0 12/15/24 05/03/25 History mcg-formot 4.8 mcg/actuation HFA inhaler (Breztri Aerosphere) prednisone 5 mg tablet 5 mg PO DAILY 12/15/2405/03 History Allergies Allergy/AdvReac Type Severity Reaction Status Date / Time aspirin Allergy Itching Verified 04/24/25 13:03 Penicillins Allergy Unknown Verified 04/24/25 13:03 Vital Signs Vital Signs - 24 hr 05/03/25 12:22 Temperature 97.2 F L Pulse Rate 116 H Respiratory Rate 18 Blood Pressure 128/83 Pulse Oximetry 99 Oxygen Delivery Room Air Exam Const: General: comfortable and no acute distress HENMT: Face/Nose/Sinus: Normal nares present Eyes: General: appearance normal, both eyes and all related structures Neck: Neck: no JVD Resp: Auscultation: clear to auscultation bilaterally Cardio: Rate: regular rate Rhythm: regular rhythm GI: Inspection: non-distended GI Palp: Yes Soft to palpation Skin: General skin exam: normal color Neuro: Speech: normal speech Extrem: General: normal to inspection Psych: Mental Status: mental status grossly normal Assessment and Plan Assessment and plan (1) Decrease in appetite: Code(s): R63.0 - Anorexia Status: Acute Assessment and Plan: egd (2) Colon polyp: Code(s): K63.5 - Polyp of colon Status: Acute Assessment and Plan: colonoscopy
[2025-05-03] MEDS: BENZOCAINE (*SP) 60 ML SPRAY CAN (HURRICAINE) 1 SPRAY MUCOUS MEM (13:15)
--- NOTE | 2025-05-03 13:24 | SUR.OPER ---
EGD ended 1319 colonoscopy started 1324
--- NOTE | 2025-05-03 13:27 | S_PTH ---
PATIENT: Raina Maxwell LOC: [facility]#:[id number] AGE/SX: 70/F ROOM: RE05/03/[address]: Roger Hernandez MD : 1955 BED: DIS: 05/03/2025 SPEC #: [id number] RECD: 05/03/25 14:30 STATUS: DANIEL REMeg #: [id number] CAROL: 05/03/25 13:[address]: Roger Hernandez DEPT: [facility] Surgical RECD BY: Candie Riggs ENTERED: 05/03/25 14:30 SP TYPE: Surgical OTHR DR: Alejandro Stanton MD Tissues: A - Gastric Biopsy B - Small Bowel Bx C - Colon Polypectomy Procedures: Hematoxylin and Eosin Stain Gross and Microscopic Level 4
[2025-05-03 13:36] VITALS: BP 115/63; PULSE 83; RESP 20; O2SAT 100
[2025-05-03 13:46] VITALS: BP 122/70; PULSE 80; RESP 19; O2SAT 100
[2025-05-03 13:56] VITALS: BP 129/77; PULSE 92; RESP 19; O2SAT 100
== END 2025-05-03 14:09 | disposition home or self-care (01) ==
PROVIDERS: PCP Emergency Medicine; Referring Provider Emergency Medicine; Visit Provider Internal Medicine Gastroenterology
PROC: 0DJ08ZZ Inspection of Upper Intestinal Tract, Via Natural or Artificial Opening Endoscopic (ICD-10-PCS; CPT 45378; principal; 2025-05-03 13:30)
DX: Z12.11 Encounter for screening for malignant neoplasm of colon (principal); D12.2 Benign neoplasm of ascending colon; K64.8 Other hemorrhoids; K57.30 Diverticulosis of large intestine without perforation or abscess without bleeding; K31.89 Other diseases of stomach and duodenum; K44.9 Diaphragmatic hernia without obstruction or gangrene; E78.5 Hyperlipidemia, unspecified; I25.10 Atherosclerotic heart disease of native coronary artery without angina pectoris; M31.6 Other giant cell arteritis; F17.210 Nicotine dependence, cigarettes, uncomplicated; R63.0 Anorexia; Z68.21 Body mass index [BMI] 21.0-21.9, adult; Z79.51 Long term (current) use of inhaled steroids; Z79.52 Long term (current) use of systemic steroids
CPT/HCPCS: 43239; 45385; 88305; J2003; J2704; J7120

== ENCOUNTER 2025-05-18 08:40 | Outpatient (CLI) | payer BC, SELFPAY ==
--- OUTSIDE RECORDS SUMMARY | 2025-03-14 04:59 | XMS_ITS | Continuity of Care Document ---
Author Organization [facility] Address [address] [facility] [place] [address] Phone Care Team Providers Care Air And Water Tester Name Role Phone Alejandro Stanton MD Unavailable Unavailable Allergies, Adverse Reactions, Alerts Substance Reaction Status Criticality PENICILLIN Active No Information Medications Medication Instructions Dosage Effective Dates (start - stop) Status Comments Breztri Aerosphere 160 mcg-9mcg-4.8mcg/actu ation HFA aerosol inhaler inhale 2 puff by inhalation route 2 times every day in the morning and evening 2.00 puff - Active Procedures Procedure Date OFFICE/OUTPATIENT VISIT, EST OFFICE/OUTPATIENT VISIT, EST OFFICE/OUTPATIENT VISIT, EST OFFICE/OUTPATIENT VISIT, EST OFFICE/OUTPATIENT VISIT, EST OFFICE/OUTPATIENT VISIT, EST OFFICE/OUTPATIENT VISIT, EST PREV VISIT, NEW, 65 & OVER OFFICE/OUTPATIENT VISIT, NEW Advance Directives Directive Yes / No Effective Date File Name No Information Encounters Encounter Description Practice Location Reason(s) For Visit Diagnoses Date Provider Providers Copied on Encounter OFFICE/OUTPA TIENT VISIT, EST [facility], [address], [place], [id number], [place] tel:[phone] [facility] Medicine fatigue1 (chief complaint) COPD1 (chief complaint) HTN (chief complaint) weight loss1 (chief complaint) CAD (chief complaint) Essential (primary) hypertensionSeconda ry polycythemiaType 2 diabetes mellitus without complicationsCentri lobular emphysemaFatigueAth erosclerotic heart disease of [place] coronary artery without angina pectorisAbnormal weight loss Mar-0 5 Maximino Allen. [address], [place], [place], [address] , [place]. tel:[phone] OFFICE/OUTPA TIENT VISIT, [facility], [address], [place], [place], [id number], [place] tel:[phone] [facility] dizziness1 (chief complaint) polycythem ia1 (chief complaint) Mixed hyperlipidemiaSecon verónica polycythemiaLoss of appetiteDizzinessEs sential (primary) hypertensionHypergl ycemia Feb- 5 Maximino Allen. [address], [place], [place], [address] , [place]. tel:[phone] OFFICE/OUTPA TIENT VISIT, [facility], [address], [place], [place], [address], [place] tel:[phone] [facility] dizziness1 (chief complaint) urine1 (chief complaint) lung nodule1 (chief complaint) sinus (chief complaint) Acute sinusitisDizzinessS olitary lung noduleAbnormal finding in urineMixed hyperlipidemia 5 Maximino Allen. [address], [place], [place], [address] , [place]. tel:[phone] OFFICE/OUTPA TIENT VISIT, [facility], [address] [place], [address], [place] tel:[phone] [facility] dizziness1 (chief complaint) DizzinessTachycardi aLoss of appetiteChest painFatigue 5 Maximino Allen. [address], [place], [place], [address] , [place]. tel:[phone] OFFICE/OUTPA TIENT VISIT, [facility], [address], [place], [place], [address], [place] tel:[phone] [facility] HLP (chief complaint) iron (chief complaint) glucose1 (chief complaint) COPD1 (chief complaint) Mixed hyperlipidemiaCentr ilobular emphysemaHyperglyce miaSecondary polycythemiaDisorde r of iron metabolism, unspecifiedAbnormal red-cell morphology Dec-0 5 Maximino Allen. [address], [place], [place], [address] , [place]. tel:[phone] OFFICE/OUTPA TIENT VISIT, [facility], [address] [place], [address], [place] tel:[phone] [facility] TA1 (chief complaint) lung nodule1 (chief complaint) CAD (chief complaint) Atherosclerotic heart disease of [place] coronary artery without angina pectorisCentrilobul ar emphysemaSolitary lung noduleOther giant cell arteritis Nov-2 5 Maximino Allen. [address], [place], [place], [address] , [place]. [phone] OFFICE/OUTPA TIENT VISIT, [facility], [address], [place], [place], [address], [place] tel:[phone] [facility] COPD1 (chief complaint) ffatigue1 (chief complaint) sinus1 (chief complaint) TA (chief complaint) FatigueSolitary lung noduleOther giant cell arteritisCentrilobu lar emphysemaAnosmia Nov-0 5 Maximino Allen. [address], [place], [place], [address] , [place]. tel:[phone] PREV VISIT, NEW, 65 & OVER [facility], [address] [place], [address], [place] tel:[phone] [facility] physical (chief complaint) Encounter for general adult medical exam w abnormal findingsOther giant cell arteritisChronic sinusitisFatigueSol itary lung noduleAnosmia Jul-0 4 Maximino Allen. [address], [place], [place], [address] , [place]. tel:[phone] Family History Family Member Type Diagnosis Age At Onset Mother Problem CAD and stroke 65 Mother Problem 70s sepsis Sister Problem dementia 75 Father Problem of 72 alzheimer disease Payers Payer name Insurance type Covered democrat ID Authoriza tion(s) [facility] CI [id number] Social History Type Description Quantity Date Captured Comments Alcohol Use Details Caffeine Use Details Unknown Tobacco Use Status Moderate cigarette s moker (10-19 cigs/day) Smoking Status Heavy tobacco smoker Sex Female Vital Signs Date / Time: Height Weight BMI Pulse Rate Blood Pressure Temperature Respiratory Rate Body Surface Area Head Circumference BMI percentile Pulse Ox Inhaled Ox 10:05 AM 64.00 in 134.80 lbs 23.1 4 kg/m eter (2) 81 /min 150/88 mm[Hg] 97.6 F 16 /min Chief Complaint And Reason For Visit From encounter dated '03/14/2025 09:59'. fatigue1 (chief complaint). Description: Pt c/o chronic fatigue Pt feels dizzy sometimes Pt denies any headache. CTA head and neck was denied by insurance. pt has borderline DM. Pt denies any polyuria, polydipsia. Pt also has polycythemia. Pt has normal iron but she is HH carrier. Pt has been cutting down on smoking COPD1 (chief complaint). Description: Pt has mild sob sometimes. Pt is on breztri and she is doing ok Pt denies any hemoptysis, cough. 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 Description: Pt has mild HTN pt denies any chest pain or headache weight loss1 (chief complaint). Description: pt has been unintentionally losing weight. pt has poorappetite Pt denies any gerd pt has fouzia for EGD and colonoscopy soon CAD (chief complaint). Description: Pt has CAD on chest CT Pt is seeing cardiology and she supposesto do stress test. pt denies any chest pain Plan Of Treatment Date Type Action Status Referral Ordered: SLEEP STUDY, ATTENDED ordered Referral Ordered: CT ANGIOGRAPHY, HEAD ordered Referral Ordered: Ophthalmology (related to Encounter for general adult medical exam w abnormal findings) ordered Referral Ordered: Otolaryngology (related to Chronic sinusitis) ordered Referral Ordered: Hematology (related to Solitary lung nodule) ordered Referral Ordered: Referrals: Hematology. Evaluate and [...] Date Complaint History Of Prese nt Illness CAD Pt has CAD on ch est CT Pt is seeing cardiology and she supposes to do stress test. pt denies any chest pain weight loss1 pt has been unin tentionally losing weight. pt has poor appetite Pt denies any gerd pt has fouzia for EGD and colonoscopy soon HTN Pt has mild HTN pt denies any chest pain or headache COPD1 Pt has mild sob sometimes. Pt is on breztri and she is doing ok Pt denies any hemoptysis, cough. 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 CTA head and neck was denied by insurance. pt has borderline DM. Pt denies any polyuria, polydipsia. Pt also has polycythemia. Pt has normal iron but she is HH carrier. Pt has been cutting down on smoking polycythemia1 Pt has polycythe vandana with high iron and high MCV. Pt rarely drinks alcohol. apparently hematology never went over above with her dizziness1 Pt c/o persisten t dizziness and feels like swimming in the water all the time. She states that she feels above all the time but seems worse when standing up. Pt has some vague headache and also photophobia. pt has very poor appetite and also feels very fatigue as well during the past month Pt denies any myalgia Pt feels some muscle weakness. Pt denies any abd pain. pt has lung nodule and she saw oncology and was told to repeat chest CT in 3 months Pt also has temporal artery arteritis and she saw rheumatology recently and ESR ok and she is on higher dose of prednisone now but has not helped Pt also stopped crestor one week ago but has not noticed any improvement of her symptoms Pt also has been losing weight as well. pt denies any GERD, early satiety, abd pain sinus Pt c/o acute ons et of sinus congestion, ear pain, postnasal drainage, mild sinus pressure for two days. pt states that she has sinus infection 1-2 per year and she usually responds to cipro . lung nodule1 Pt has mihiriciou s lung nodule. She is seeing oncology. Pt just had another chest CT which showed suspicious nodule urine1 Pt notices some dark color urine recently. Pt had UA done which was ok without blood. Pt denies any dysuria dizziness1 Pt has mild dizz iness, which is improving Pt went to [facility] and had negative lab and CT of head and also CTA of chest. Pt states that she is feeling better now dizziness1 Pt c/o acute ons et of dizziness, loss of balance feeling for 2-3 days. pt feels that the world is swimmy. Pt denies any vertigo. Pt denies any ear pain or any tinnitus or any vision change. Pt states that she misjudged her step this morning and almost fell. 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 Pt also c/o lack of appetite and fatigue for one week. Pt also c/o feeling some pressure/pain midsternal area as well for the past several days. Pt denies any headache or syncope. 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 Pt started breztri and she is doing well Pt has not felt sob since starting breztri glucose1 Pt has high gluc ose Pt denies any polyuria ,polydipsia. iron Pt has high iron and polycythemia. Pt has high b12 Pt does take b12 supplement Pt has low D Pt has not done bone density yet. Pt denies any snoring or any difficulty with sleeping Pt has high MCV HLP Pt has HLP Pt gaines s CAD on chest ct .Pt saw cardiology and was told to start statin if lipid is high Pt denies any chest pain TA1 Pt has temporal arteritis. Pt has [...] Pt denies any chest pain Pt has fouzai with cardiology next week. lung nodule1 Pt has lung nodu le. Pt had PET scan done 4 months ago and she keeps getting call from oncology about CT scan. Pt does feel sob Pt has not tried breztri yet. Pt denies any hemoptysis. sinus1 Pt has chronic s inus congestion and she is seeing ENT Pt had sinus CT which was benign Pt failed abx. 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 Pt is on astelin nasal spray by ENT> ffatigue1 Pt c/o chronic f atigue pt is not sure if she snores at night . TA Pt has history o f right temporal artery arteritis. Pt denies any vision loss or headache Pt is on chronic prednisone per rheumatology COPD1 Pt is heavy smok er and she feels sob frequently pt was diagnosed with COPD several years ago Pt feels frequent sob. Pt also has suspicious lung nodule and she is seeing hematology and she is being monitored. Pt denies any hemoptysis, cough physical Pt needs annual physical. Pt is [...] other complaints Instructions Date Instruction Additional Infor sarina No Information Assessments Type Assessment Date assessment Essential (primary) hypertension assessment Secondary polycythemia 25 assessment Type 2 diabetes mellitus without complications assessment Centrilobular emphysema 025 assessment Fatigue assessment Atherosclerotic hear t disease of upper [place] coronary artery without angina pectoris assessment Abnormal weight loss Mental Status Date Cognitive Assessment Orientation - [place] ed to time, place, person, situation.
--- NOTE | ~2025-05-18 | NM_ITS ---
EXAMINATION: NM jarvis stress w perfusion DATE: 05/18/2025 10:39 INDICATION: Chest pain TECHNIQUE: Rest images were obtained following intravenous administration of 9.9 mCi Tc99m tetrofosmin (Myoview). The patient was infused intravenously with Lexiscan (Regadenoson). Then, 31.7 mCi Tc99m tetrofosmin (Myoview) was administered intravenously, and stress images were obtained. Data was recon structed into short axis and horizontal and vertical long axis SPECT images. Gated SPECT images were also obtained. COMPARISON: None. FINDINGS: There is no definite reversible or fixed perfusion abnormality to suggest ischemia or infarction. There is normal left ventricular chamber size, wall motion and ejection fraction. Left ventricular ejection fraction measures >70%. IMPRESSION: 1. Normal myocardial perfusion at rest and during stress. 2. Left ventricular ejection fraction measuring >70%. Reviewed, dictated and finalized at location A.
--- OUTSIDE RECORDS SUMMARY | 2025-05-18 08:48 | XMS_ITS | Clinical Summary ---
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 Gender Identity Not on file Sexual Orientation Not on file Last Filed Vital Signs Vital Sign Reading Time Taken Comments Blood Pressure 110/80 01/29/2023 1:29 PM CDT Pulse 87 01/29/2023 1:29 PM CDT Temperature 36.9 C (98.5 F) 01/29/2023 1:29 PM CDT Respiratory Rate 8 11/12/2018 2:07 PM ORIENTAL RUG STRETCHER Oxygen Saturation 99% 01/29/2023 1:29 PM CDT [...] OSTEOPOROSIS SCREENING 12/23/2023 12/22/2018 INFLUENZA VACCINE (#1) 2025 , 06/14/2021, 05/30/2020, Additional history exists COVID-19 Vaccine ( - 2024-2 6 season) 2025 09/14/2021, 09/11/2021, 01/01/2021, Additional history exists COLORECTAL SCREENING 11/25/2028 11/25/2018, [...] Recently Relevant to Health Maintenance Insurance [facility] BLUE ACCESS/TRUE BLUE PPO Care Teams Head Of Strategy Relationship Specialty Start Date End Date Belkis Conklin MD PCP - General Family Practice 08/09/18
--- OUTSIDE RECORDS SUMMARY | 2025-05-18 08:48 | XMS_ITS | Encounter Summary ---
[facility] Address [address] [place] [address] Phone Care Team Providers Care Funeral Service Licensee Name Role Phone Alejandro Stanton Primary Care Provider Reason for Visit * Reason Onset Date Comments Canopy Call / Scan results 10/21/2024 Encounter Details Date Type Department Care Team (Late Contact Info) Description 10/21/2024 Telephone [facility] [address] [phone] Josue Bangura MD [address] [place] [address] Canopy Call / Scan results [...] Department Care Team (Late Contact Info) Description 10/30/2025 11:45 AM [facility] [employer] [facility] Telemedicine [facility] [address] [phone] Josue Bangura MD [address] [place] [address] documented as of this encounter Visit Diagnoses Not on filedocumented in this encounter Care Teams Funeral Service Licensee Relationship Specialty Start Date End Date Alejandro Stanton [address] [place] [address] PCP - General Family Medicine 08/15/24 documented as of this encounter
--- OUTSIDE RECORDS SUMMARY | 2025-05-18 08:48 | XMS_ITS | Clinical Summary ---
Author Organization [facility] Address [address] [place] [address] Care Team Providers Care Back Shoe Operator Name Role Phone Renita Mahmood MD Unavailable Sarai Gonzalez MD Unavailable Alejandro Stanton MD Primary Care Provider [phone] Allergies Active Allergy Reactions Criticality Noted Date [...] (12/09/2018): Added automatically from request for surgery [id number] Special screening for malign ant neoplasms, colon 10/22/2018 11/21/2024 Overview (12/10/2018): T-A; recall colonocsopy 5 years 2023 Liver lesion 08/26/2018 11/21/2024 Pelvic congestion 08/26/2018 11/21/2024 Nausea 08/02/2018 11/21/2024 Night sweats 08/02/2018 11/21/2024 Rash 08/02/2018 11/21/2024 Genital herpes 06/16/2014 11/21/2024 Encounters Date Type Department Care Team Description 04/10/2025 11:00 AM CDT Lab [place] [id number] [place] [id number] from Last 3 Months Immunizations Immunization Administration [...] AUTO DIFFERENTIAL Routine 04/10/2025 11:05 AM CDT COLONOSCOPY 11/25/2018 10:21 AM CDT from [...] MD LAB BLOOD ORDERABLES Final Resul t [facility] [address] Department [place] [address] * (ABNORMAL) Differential, auto (04/10/2025 11:05 AM CDT) Neutrophil abs 7.38(H) 1.50 - 6.50 K/cumm Imm gran abs 0.05 0.00 - 0.10 K/cumm [facility] Lymphocyte abs 1.33 0.80 - 3.30 K/cumm [facility] Monocyte abs 0.48 0.20 - 0.80 K/cumm [facility] Eosinophil abs 0.06 0.00 - 0.50 K/cumm [facility] Basophil abs 0.05 0.00 - 0.10 K/cumm [facility] Neutrophil pct 79.1 % [facility] Comment: Interpretive Data Percent cell count reference ranges are not reported, since discordance with absolute values may lead to misinterpretation of CBC data. Current Interpretive Data was last revised on 2017. Imm gran pct 0.5 % [facility] Comment: Interpretive Data Percent cell count reference ranges are not reported, since discordance with absolute values may lead to misinterpretation of CBC data. Current Interpretive Data was last revised on 2017. Lymphocyte pct 14.2 % [facility] Comment: Interpretive Data Percent cell count reference ranges are not reported, since discordance with absolute values may lead to misinterpretation of CBC data. Current Interpretive Data was last revised on 2017. Monocyte pct 5.1 % [facility] Comment: Interpretive Data Percent cell count reference ranges are not reported, since discordance with absolute values may lead to misinterpretation of CBC data. Current Interpretive Data was last revised on 2017. Eosinophil pct 0.6 % [facility] Comment: Interpretive Data Percent cell count reference ranges are not reported, since discordance with absolute values may lead to misinterpretation of CBC data. Current Interpretive Data was last revised on 2017. Basophil pct 0.5 % [facility] Comment: Interpretive Data Percent cell count reference ranges are not reported, since discordance with absolute values may lead to misinterpretation of CBC data. Current Interpretive Data was last revised on 2017. Blood 04/10/2025 11:0 5 AM CDT 04/10/2025 2:35 PM CDT us Sarai Gonzalez MD LAB BLOOD ORDERABLES Final Resul t [facility] [address] Department [place] [address] * (ABNORMAL) CBC with auto differential (04/10/2025 11:05 AM CDT) WBC 9.35 3.80 - 9.90 K/cumm Hgb 16.5(H) 11.9 - 15.5 g/dL [facility] Hct 50.9(H) 35.6 - 45.5 % [facility] Plt 225 150 - 400 K/cumm [facility] MPV 9.7 9.1 - 12.3 fL [facility] RBC 5.23(H) 3.90 - 5.20 M/cumm [facility] MCV 97.3(H) 81.3 - 96.4 fL [facility] MCH 31.5 27.1 - 33.3 pg [facility] MCHC 32.4 32.3 - 35.7 g/dL [facility] RDW CV 13.1 11.1 - 14.9 % [facility] RDW SD 47.1 35.7 - 48.1 fL [facility] NRBC abs 0.00 0.00 - 0.01 K/cumm [facility] Blood 04/10/2025 11:0 5 AM CDT 04/10/2025 2:35 PM CDT us Sarai Gonzalez MD LAB BLOOD ORDERABLES Final Resul t Performing Organization Address City/[facility] Co de Phone Number [place] [address] [facility] [employer] [place], [place] [id number] * Erythrocyte sedimentation rate (04/10/2025 11:05 AM CDT) Erythrocyte sedimentation rate 7 1 - 30 mm/hr Blood 04/10/2025 11:0 5 AM CDT 04/10/2025 2:35 PM CDT us Sarai Gonzalez MD LAB BLOOD ORDERABLES Final Resul t Performing Organization Address [facility] Co de Phone Number [place] [address] [facility] [place] [address] * CRP (acute phase) (04/10/2025 11:05 AM CDT) CRP 6.7 <=10.0 mg/L Blood 04/10/2025 11:0 5 AM CDT 04/10/2025 3:16 PM CDT us Sarai Gonzalez MD LAB BLOOD ORDERABLES Final Resul t Performing Organization Address [facility] Co de Phone Number [place] [address] Department of [place] [address] * (ABNORMAL) Comprehensive metabolic panel (04/10/2025 11:05 AM CDT) Sodium 141 135 - 145 mmol/L Potassium, pl 4.3 3.3 - 4.9 mmol/L [facility] Chloride 102 97 - 110 mmol/L [facility] CO2 23 22 - 32 mmol/L [facility] Anion gap 16(H) 2 - 15 mmol/L [facility] BUN 9 6 - 25 mg/dL [facility] Creatinine 0.90 0.60 - 1.10 mg/dL [facility] Glucose 134 70 - 199 mg/dL [facility] Comment: Interpretive Data Fasting glucose >/= 126 [...] 2022. Calcium 9.4 8.5 - 10.3 mg/dL [facility] Bilirubin, total 0.5 0.1 - 1.2 mg/dL [facility] Protein, pl 6.9 6.5 - 8.5 g/dL [facility] Albumin 4.6 3.5 - 5.0 g/dL [facility] Alk phos 98 40 - 130 Units/L [facility] ALT 21 7 - 45 Units/L [facility] AST 20 10 - 45 Units/L [facility] Blood 04/10/2025 11:0 5 AM CDT 04/10/2025 3:16 PM CDT us Sarai Gonzalez MD LAB BLOOD ORDERABLES Final Resul t [facility] [address] Department [place] [address] * COLONOSCOPY (11/25/2018 10:21 AM CDT) Anatomical Region Laterality Modality Other Narrative Procedure Note Haris Fenton MD - 11/25/2018 10:21 AM CDT ENDOSCOPY LAB Patient Name: Raina Maxwell Procedure Date: 11/25/2018 10:21 AM Admit Type: Outpatient Room: [facility] Date of : 1955 Instrument Name: [...] the bowel preparation was evaluated usingthe BBPS ([place] Bowel Preparation Scale) with scores of: Right [...] - [facility] The signs and symptoms of potential delayedcomplications were discussed with the patient. Return to normal activities tomorrow. Written discharge instructionswere provided to the patient. - Resume previous diet. - Continue present medications. - Await pathology results. - Pathology results will be sent to you by mail [email or web address] business days. Please call if you do not receivethese. - Repeat colonoscopy in 3 years for surveillance. - Return to endoscopist PRN. Attending Participation: I personally performed the entire procedure without the assistance ofa fellow, resident or rn surgical. Electronically signed by Haris Fenton Haris Fenton MD 11/25/2018 11:10:12 AM Number of Addenda: 0 Note Initiated On: 11/25/2018 10:21 AM Haris Fenton MD ENDOSCOPY PROCEDURES Final Result from Last 3 Months or Most Recently Relevant to Health Maintenance Insurance [email or web address] OOS [email or web address] OOS BLUE ACCESS OOS Advance Directives For more information, please contact: [phone] * Full Code (Latest Code Status on File) Date Activated Date Inactivated Comments 11/25/2018 9:49 AM 11/25/2018 3:38 PM Care Teams Back Shoe Operator Relationship Specialty Start Date End Date Renita Mahmood MD [address] [place] [address] PCP - communications advisor Obstetrics and Gynecology 10/22/18 Alejandro Stanton MD [address] [address] PCP - General Family Medicine 09/15/24 Sarai Gonzalez MD [address] [place] [address] Referring Physician Rheumatology 12/20/18
--- OUTSIDE RECORDS SUMMARY | 2025-05-18 08:48 | XMS_ITS | Patient Health Record ---
Author Organization [facility] shiraz Address [address] [place] [address] Care Team Providers Care Hydraulic Boom Operator Name Role Phone Alejandro Stanton MD Primary Care Provider Sarai Sosa [facility] [phone] Allergies Allergen (clinical drug ingredient) Drug/Non Drug Allergy documented on EMR Reaction Allergy Type Onset Date Status aspirin Aspirin Unknown Drug Allergy 11/09/2018 Active Substance with penicillin structure and antibacterial mechanism of action (substance) Penicillins Unknown Drug Allergy 11/09/2018 Active Results Component Value Reference Range Notes C Reactive Protein Reviewed date:04/10/2025 04:38:01 PM Interpretation: Performing Lab:[facility] , [facility]. [place] [address] Notes/Report: C-Reactive Protein 6.7 <=10.0 mg/L CBC w auto diff Reviewed date:04/10/2025 04:37:52 PM Interpretation:Lab Result Generalized Performing Lab:[facility] , [facility]5 [facility]. [place] [address] Notes/Report: WBC 9.35 3.80-9.90 K/cumm Hgb 16.5 11.9-15.5 g/dL Hct 50.9 35.6-45.5 % Platelet Ct 225 150-400 K/cumm MPV 9.7 9.1-12.3 fL RBC 5.23 3.90-5.20 M/cumm MCV 97.3 81.3-96.4 fL MCH 31.5 27.1-33.3 pg MCHC 32.4 32.3-35.7 g/dL RDW CV 13.1 11.1-14.9 % RDW SD 47.1 35.7-48.1 fL NRBC Abs Auto 0.00 0.00-0.01 K/cumm Comprehensive metabolic pane l (CMP) Reviewed date:04/10/2025 04:37:52 PM Interpretation:Lab Result Generalized Performing Lab:[facility] , [address] [place] [address]. [facility] [address] Notes/Report: Sodium 141 135-145 mmol/L Plasma Potassium 4.3 3.3-4.9 mmol/L Chloride 102 97-110 mmol/L Total CO2 23 22-32 mmol/L Anion Gap 16 2-15 mmol/L BUN 9 6-25 mg/dL Creatinine 0.90 0.60-1.10 mg/dL Glucose 134 70-199 mg/dL Fasting is defined as no caloric intake [...] Current interpretive data was last revised 2022. Interpretive Data Fasting glucose >/= 126 mg/dl is diagnostic for diabetes. Total Calcium 9.4 8.5-10.3 mg/dL Total Bilirubin 0.5 0.1-1.2 mg/dL Plasma Total Protein 6.9 6.5-8.5 g/dL Albumin 4.6 3.5-5.0 g/dL Alkaline Phosphatase 98 40-130 Units/L ALT 21 7-45 Units/L AST 20 10-45 Units/L Sed Rate Reviewed date:04/10/2025 04:37:52 PM Interpretation:Lab Result Generalized Performing Lab:[facility] , [address] [place] [address]. [place] [address] Notes/Report: ESR 7 1-30 mm/hr Differential Automated Reviewed date:07/13/2024 10:04:40 PM Interpretation: Performing Lab:[facility] , [address] [place] [address]. [place] [address] Notes/Report: Neut Abs 6.7 1.5-6.5 K/cumm ImmGran Abs 0.0 0.0-0.1 K/cumm Lymphocyte Abs 1.2 0.8-3.3 K/cumm [place] Abs 0.4 0.2-0.8 K/cumm Eos Abs 0.1 [...] Interpretive Data was last revised on 2017. [place] Pct 4.2 Interpretive Data Percent cell count [...] Interpretive Data was last revised on 2017. eGFR Reviewed date:07/13/2024 10:04:40 PM Interpretation: Performing Lab:[facility] , [address] [place] [address]. [facility] [address] Notes/Report: eGFR 71 >=60 mL/min/1.73 m2 Interpretive [...] Current interpretive data was last reviewed 2021. Sed Rate Reviewed date:02/01/2025 10:00:40 PM Interpretation: Performing Lab:[facility] , [address] [facility]. [place] [address] Notes/Report: ESR 9 1-30 mm/hr Comprehensive metabolic pane l (CMP) Reviewed date:02/01/2025 10:00:40 PM Interpretation: Performing Lab:[facility] , [address] [facility]. [place] [address] Notes/Report: Sodium 142 135-145 mmol/L Plasma Potassium 3.9 3.3-4.9 mmol/L Chloride 101 97-110 mmol/L Total CO2 24 22-32 mmol/L Anion Gap 17 2-15 mmol/L BUN 8 6-25 mg/dL Creatinine 1.07 0.60-1.10 mg/dL Glucose 151 70-199 mg/dL Interpretive Data Fasting glucose >/= [...] data was last revised 2022. Total Calcium 9.9 8.5-10.3 mg/dL Total Bilirubin 0.6 0.1-1.2 mg/dL Plasma Total Protein 7.6 6.5-8.5 g/dL Albumin 4.7 3.5-5.0 g/dL Alkaline Phosphatase 91 40-130 Units/L ALT 20 7-45 Units/L AST 26 10-45 Units/L CBC w auto diff Reviewed date:02/01/2025 10:00:40 PM Interpretation: Performing Lab:[facility] , [address] [place] [address]. [facility] [address] Notes/Report: WBC 7.50 3.80-9.90 K/cumm Hgb 15.8 11.9-15.5 g/dL Hct 47.0 35.6-45.5 % Platelet Ct 234 150-400 K/cumm MPV 9.8 9.1-12.3 fL RBC 4.79 3.90-5.20 M/cumm MCV 98.1 81.3-96.4 fL MCH 33.0 27.1-33.3 pg MCHC 33.6 32.3-35.7 g/dL RDW CV 11.9 11.1-14.9 % RDW SD 43.5 35.7-48.1 fL NRBC Abs Auto 0.00 0.00-0.01 K/cumm C Reactive Protein Reviewed date:02/01/2025 10:00:11 PM Interpretation:Lab Result Generalized Performing Lab:[facility] , [address] [place] [address]. [facility] [address] Notes/Report: C-Reactive Protein 6.0 <=10.0 mg/L Sed Rate Reviewed date:07/13/2024 10:04:40 PM Interpretation: Performing Lab:[facility] , [address] [place] [address]. [facility] [address] Notes/Report: ESR 7 1-30 mm/hr Comprehensive metabolic pane l (CMP) Reviewed date:07/13/2024 10:04:15 PM Interpretation:Lab Result Generalized Performing Lab:[facility] , [address] [place] [address]. [facility] [address] Notes/Report: Sodium 142 135-145 mmol/L Plasma Potassium [...] 10:04:15 PM Interpretation:Lab Result Generalized Performing Lab:[facility] , [address] [place] [address]. [place] [address] Notes/Report: WBC 8.4 3.8-9.9 K/cumm Hgb 16.4 [...] Reviewed date:07/13/2024 10:04:40 PM Interpretation: Performing Lab:[facility] , [address] [place] [address]. [place] [address] Notes/Report: C-Reactive Protein 10.7 <=10.0 mg/L eGFR Reviewed date:04/10/2025 04:38:01 PM Interpretation: Performing Lab:[facility] , [facility]5 [facility]. [place] [address] Notes/Report: eGFR 70 >=60 mL/min/1.73 m2 Interpretive Data Reference Interval [...] was last reviewed 2021. Differential Automated Reviewed date:04/10/2025 04:38:01 PM Interpretation: Performing Lab:[facility] , [address] [facility]. [place] [address] Notes/Report: Neut Abs 7.38 1.50-6.50 K/cumm ImmGran Abs 0.05 0.00-0.10 K/cumm Lymphocyte Abs 1.33 0.80-3.30 K/cumm [place] Abs 0.48 0.20-0.80 K/cumm Eos Abs 0.06 0.00-0.50 K/cumm Baso Abs 0.05 0.00-0.10 K/cumm Neut Pct 79.1 Interpretive Data Percent cell count reference ranges [...] was last revised on 2017. Lymph Pct 14.2 Interpretive Data Percent cell count reference ranges are not reported, since discordance with absolute values may lead to misinterpretation of CBC data. Current Interpretive Data was last revised on 2017. [place] Pct 5.1 Interpretive Data Percent cell count reference ranges [...] was last revised on 2017. Baso Pct 0.5 Interpretive Data Percent cell count reference ranges are not reported, since discordance with absolute values may lead to misinterpretation of CBC data. Current Interpretive Data was last revised on 2017. eGFR Reviewed date:02/01/2025 10:00:40 PM Interpretation: Performing Lab:[facility] , [facility]5 [facility]. [facility] [address] Notes/Report: eGFR 57 >=60 mL/min/1.73 m2 Interpretive Data Reference Interval [...] was last reviewed 2021. Differential Automated Reviewed date:02/01/2025 10:00:40 PM Interpretation: Performing Lab:[facility] , [address] [facility]. [place] [address] Notes/Report: Neut Abs 6.13 1.50-6.50 K/cumm ImmGran Abs 0.02 0.00-0.10 K/cumm Lymphocyte Abs 1.00 0.80-3.30 K/cumm [place] Abs 0.30 0.20-0.80 K/cumm Eos Abs 0.02 0.00-0.50 K/cumm Baso Abs 0.03 0.00-0.10 K/cumm Neut Pct 81.7 Interpretive Data Percent cell count reference ranges are not reported, since discordance with absolute values may lead to misinterpretation of CBC data. Current Interpretive Data was last revised on 2017. ImmGran Pct 0.3 Interpretive Data Percent cell count reference ranges are not reported, since discordance with absolute values may lead to misinterpretation of CBC data. Current Interpretive Data was last revised on 2017. Lymph Pct 13.3 Interpretive Data Percent cell count reference ranges are not reported, since discordance with absolute values may lead to misinterpretation of CBC data. Current Interpretive Data was last revised on 2017. [place] Pct 4.0 Interpretive Data Percent cell count reference ranges are not reported, since discordance with absolute values may lead to misinterpretation of CBC data. Current Interpretive Data was last revised on 2017. Eos Pct 0.3 Interpretive Data Percent cell count reference ranges are not reported, since discordance with absolute values may lead to misinterpretation of CBC data. Current Interpretive Data was last revised on 2017. Baso Pct 0.4 Interpretive Data Percent cell count reference ranges are not reported, since discordance with absolute values may lead to misinterpretation of CBC data. Current Interpretive Data was last revised on 2017. SEDIMENTATION RATE, ESR Reviewed date:03/07/2025 08:24:18 AM Interpretation:Lab Result Generalized Performing Lab:[facility], [address] [place] [address], [address] Notes/Report: Sedimentation Rate 5 (Based on doc umented legal sex) 0-30 mm/Hour CBC W/DIFF Reviewed date:03/07/2025 08:24:18 AM Interpretation:Lab Result Generalized Performing Lab:[facility], [address] [place] [address], [id number] Notes/Report: WBC 6.2 3.5-10.5 10'3/uL RBC 4.93 (Based on docume nted legal sex) 3.80-5.20 10'6/uL HGB 15.5 (Based on docume nted legal sex) 11.6-15.4 g/dL HCT 47.8 (Based on docume nted legal sex) 34.0-45.0 % MCV 97.0 80.0-99.0 fL MCH 31.4 27.0-34.0 pg MCHC 32.4 32.0-35.5 g/dL RDW 11.9 11.0-15.0 % PLT 235 150-400 10'3/uL MPV 10.0 8.8-12.1 fL NRBC's 0.0 0.0 % Absolute NRBCs 0.0 No reference ran ge established 10'3/uL Neutrophils 64.3 34.0-73.0 % Lymphocytes 28.2 15.0-50.0 % Monocytes 5.7 1.0-15.0 % Eosinophils 1.0 0.0-8.0 % Basophils 0.5 0.0-2.0 % Immature Granulocytes 0.3 No defined reference range % Immature Granulocytes (IG) represents automated enumeration of Metamyelocytes, Myelocytes and Promyelocytes when IG is < 5%. Blasts are not included in IG and reported separately if present. Absolute Neutrophils 4.0 1.5-8.0 10'3/uL Absolute Lymphocytes 1.7 1.0-4.0 10'3/uL Absolute Monocytes 0.4 0.2-1.0 10'3/uL Absolute Eosinophils 0.1 0.0-0.6 10'3/uL Absolute Basophils 0.0 0.0-0.3 10'3/uL Absolute Immature Granulocytes 0.0 0.00-0.10 10'3/uL Reference ranges for nonbinary/intersex or unspecified gender patients have not been established. Please refer to the following table for ranges established for cisgender patients and evaluate in the clinical context of the individual patient: https://labhandbook.nm.org/ge nderx CMP(COMPREHENSIVE METABOLIC PANEL) Reviewed date:03/07/2025 08:24:18 AM Interpretation:Lab Result Generalized Performing Lab:[facility], [address] [place] [address], [address] Notes/Report: Sodium 143 133-146 mmol/L Potassium 3.6 3.5-5.1 mmol/L Chloride 103 98-107 mmol/L Carbon Dioxide 33 21-31 mmol/L Anion Gap 7 4-13 mmol/L Blood Urea Nitrogen 8 7-25 mg/dL Creatinine 1.00 0.60-1.30 mg/dL eGFRcr (CKD-EPI 2020) 61 >=60 mL/min/1.73 m2 Calcium 9.7 8.3-10.5 mg/dL Glucose 105 70-100 mg/dL Protein, Total 6.7 6.4-8.3 g/dL Albumin 4.5 3.5-5.0 g/dL ALT 10 9-43 units/L Alkaline Phosphatase 73 34-104 units/L AST 12 13-39 units/L Bilirubin, Total 0.9 0.2-1.2 mg/dL CRP (C-REACTIVE PROTEIN) Reviewed date:03/07/2025 08:24:33 AM Interpretation: Performing Lab:[facility], [address] [place] [address], [address] Notes/Report: C-Reactive Protein 6.2 0.0-10.0 mg/L Reason For Referral No Information Medications Medication SIG (Take, Route, Fr equency, Duration) Notes Start Date End Date Status predniSONE 1 MG TAKE 4 TABLETS BY [facility] EVERY DAY; Duration: 30 Active predniSONE 5 MG 1 tablet with food o r milk Orally Once a day; Duration: 30 days Ac tive Problems Problem Type SNOMED Code ICD Code Onset Dates Problem Status W/U Status Risk Notes Problem Giant cell arteritis (disorder) (450878252) GCA (giant cell arteritis) (M31.6) Active confirmed Problem Solitary nodule of lung (198691119) Lung nodule (R91.1) Active confirmed Vital Signs Heart Rate 98 /min 03/06/2025 Temperature 98.0 degrees Fahrenheit 04/10/2025 Blood pressure diastolic 80 mm Hg 04/10/2025 Oximetry 94 % 03/06/2025 Height-cm 165.1 cm 04/10/2025 Weight-kg 59.92 kg 04/10/2025 Height 65 in 04/10/2025 Blood pressure systolic 118 mm Hg 04/10/2025 Weight 132.1 lbs 04/10/2025 BMI 21.98 kg/m2 04/10/2025 Encounters Encounter Location Date Provider Diagnosis [facility] [address] [place] [address] 07/13/2024 Sarai Du GCA (giant cell arteritis) M31.6 and Osteopenia, unspecified location M85.80 [facility] [address] [place] [address] 02/01/2025 Sarai Gonzalez GCA (giant cell arteritis) M31.6 ; Osteopenia, unspecified location M85.80 and Lung nodule R91.1 [facility] [address] [place] [address] 03/06/2025 Sarai Gonzalez GCA (giant cell arteritis) M31.6 ; Osteopenia, unspecified location M85.80 and Lung nodule R91.1 [facility] [address] [place] [address] 04/10/2025 Sarai Gonzalez GCA (giant cell arteritis) M31.6 ; Osteopenia, unspecified location M85.80 and Lung nodule R91.1 [facility] [address] [place] [address] 05/31/2024 Sarai [facility] [address] [place] [address] 07/29/2024 [facility] [address] [place] [address] 08/23/2024 [facility] [address] [place] [address] 02/08/2025 [facility] [address] [place] [address] 02/13/2025 Sarai [facility] [address] [place] [address] 02/15/2025 [facility] [address] [place] [address] 03/14/2025 Sarai Gonzalez GCA (giant cell arteritis) M31.6 [facility] [address] [place] [address] 02/15/2025 Sarai Gonzalez Assessments Encounter Date Diagnosis (ICD Code) Assessment Notes Treatment Notes Treatment Clinical Notes Section Notes 07/13/2024 GCA (giant cell arteritis) (ICD-10 - M31.6) mildly symptomatic, check labs, will decide on the dosage of prednisone, refer to Dr. Amos for eye exam, advised to call Dr. Stanton and schedule appt as a new patient (primary care) 02/01/2025 Osteopenia, unspecified location (ICD-10 - M85.80) increase prednisone to 10mg/day, labs today, return in 1 month, discussed actemra, we both agreed that we should wait until after repeat chest CT is done 02/01/2025 GCA (giant cell arteritis) (ICD-10 - M31.6) increase prednisone to 10mg/day, labs today, return in 1 month, discussed actemra, we both agreed that we should wait until after repeat chest CT is done 03/06/2025 GCA (giant cell arteritis) (ICD-10 - M31.6) decrease prednisone to 9mg/day, labs today, return in 1 month, discussed actemra, we both agreed that we should wait until after repeat chest CT is done, advised to quit smoking 03/14/2025 GCA (giant cell arteritis) (ICD-10 - M31.6) 04/10/2025 GCA (giant cell arteritis) (ICD-10 - M31.6) advised to decrease prednisone by 1 mg per month, labs today, return in 2 month, discussed actemra, will wait until after repeat chest CT is done, advised to quit smoking 04/10/2025 Osteopenia, unspecified location (ICD-10 - M85.80) advised to decrease prednisone by 1 mg per month, labs today, return in 2 month, discussed actemra, will wait until after repeat chest CT is done, advised to quit smoking 07/13/2024 Osteopenia, unspecified location (ICD-10 - M85.80) mildly symptomatic, check labs, will decide on the dosage of prednisone, refer to Dr. Amos for eye exam, advised to call Dr. Stanton and schedule appt as a new patient (primary care) 02/01/2025 Lung nodule (ICD-10 - R91.1) increase prednisone to 10mg/day, labs today, return in 1 month, discussed actemra, we both agreed that we should wait until after repeat chest CT is done 03/06/2025 Osteopenia, unspecified location (ICD-10 - M85.80) decrease prednisone to 9mg/day, labs today, return in 1 month, discussed actemra, we both agreed that we should wait until after repeat chest CT is done, advised to quit smoking 03/06/2025 Lung nodule (ICD-10 - R91.1) decrease prednisone to 9mg/day, labs today, return in 1 month, discussed actemra, we both agreed that we should wait until after repeat chest CT is done, advised to quit smoking 04/10/2025 Lung nodule (ICD-10 - R91.1) advised to decrease prednisone by 1 mg per month, labs today, return in 2 month, discussed actemra, will wait until after repeat chest CT is done, advised to quit smoking Plan Of Treatment Pending Test Test Name Order Date CRP (C-REACTIVE PROTEIN) 03/07/2024 HEMOGLOBIN A1C 03/07/2024 SEDIMENTATION RATE, ESR 03/07/2024 C Reactive Protein 03/06/2025 CBC w auto diff 03/06/2025 Comprehensive metabolic panel (CMP) 02/13 Sed Rate 03/06/2025 Next Appt Details Provider Name:Sarai Carlos, 06/12 10:30:00 AM, [address] [facility] [address], [place], [address], Insurance Providers Payer Name Payer Address Payer Phone Subscriber Number Group Number Insured Name Patient Relationship to Insured Coverage Start Date Coverage End Date Nicholas [address] [place] [address] [id number] Raina Maxwell Self - patient is the insured Medical (General) History Medical History History ICD Code Allergy; Anemia; Emphysema; Surgical History Surgery Date(Month/Year) breast, Date of Procedure: 1999; 2018-10
--- NOTE | 2025-05-18 08:49 | EST_ITS ---
Patient Info Name: Raina Maxwell Age: 70 years : 1955 Gender: Female Ht: 64 in Wt: 130 lbs BSA: 1.64 m2 HR: 81 bpm BP: 163 / 86 mmHg Exam Date: 05/18/2025 8:49 AM Patient Status: O Admit Date: 05/18/2025 Exam Type: CA stress jarvis w NM A regadenoson stress test was performed. Staff Referring Physician: Godfrey Cotter DO Attending Provider: Godfrey Cotter DO Exercise Technologist: Bobbi Cortez Exercise Physician: Godfrey Cotter DO Summary 1. 1. Negative lexiscan stress test for ischemic ST changes by ECG criteria. 2. 2. Baseline hypertension. 3. 3. Nuclear scan to follow and will be reported separately. Please correlate with it. 4. 4. Patient informed of the above results. Protocol: Lexiscan Stress ECG Details Stage: REST Duration (min): 1 min : 41 sec HR (bpm): 81 SBP (mmHg): 163 DBP (mmHg): 86 Stage: REST Duration (min): 4 min : 42 sec HR (bpm): 82 SBP (mmHg): 163 DBP (mmHg): 86 Stage: STAGE 1 Duration (min): 0 min : 59 sec HR (bpm): 93 SBP (mmHg): 169 DBP (mmHg): 88 Stage: RECOVERY Duration (min): 1 min : 0 sec HR (bpm): 111 SBP (mmHg): 169 DBP (mmHg): 88 Stage: RECOVERY Duration (min): 2 min : 0 sec HR (bpm): 103 SBP (mmHg): 169 DBP (mmHg): 88 Stage: RECOVERY Duration (min): 3 min : 0 sec HR (bpm): 102 SBP (mmHg): 157 DBP (mmHg): 86 Stage: RECOVERY Duration (min): 3 min : 19 sec HR (bpm): 102 SBP (mmHg): 157 DBP (mmHg): 86 Rest HR: 82 bpm Peak HR: 111 bpm Rest Sys BP: 163 mmHg Peak Sys BP: 169 mmHg Max Pred HR: 152 bpm % Max Pred HR: 73 % Target HR: 129 bpm Max RPP: 18,759 bpm*mmHg Termination Reason: Completed protocol Cardiac Symptoms: Shortness of breath Total Time: 1 min : 0 sec Rest Acuña BP: 86 mmHg Peak Acuña BP: 88 mmHg Total Dose: 0.4 mg Resting ECG Sinus rhythm. Stress ECG No ST changes. Arrhythmias None. Report Signatures
--- OUTSIDE RECORDS SUMMARY | 2025-05-18 08:49 | XMS_ITS | Clinical Summary ---
Author Organization 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 Active cetirizine (ZyrTEC) 10 MG Tablet Take 10 mg by mouth as needed. Active azelastine (ASTELIN) 0.1 % Solution 2 Sprays by Nasal route daily. Use in each nostril as directed Active Crestor 20 MG Tablet Take 20 mg by mouth daily. 5 Active Azelastine-Flut icasone 137-50 MCG/ACT Suspension by Nasal route. Active Breztri Aerosphere 160-9-4.8 MCG/ACT Aerosol take 2 Puffs by inhalation. 5 Active Cipro 500 MG Tablet Take 1 Tablet by mouth every 12 hours. 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, [employer] SPREADER Lung nodule (Primary Dx) 05/01/2025 Travel from Last 3 Months Family History Medical [...] Sign Reading Time Taken Comments Blood Pressure 128/78 05/01/2025 11:27 AM CDT Pulse 110 05/01/2025 11:27 AM CDT Temperature 36.7 C (98 F) 05/01/2025 11:27 AM CDT Respiratory Rate 16 05/01/2025 11:27 AM CDT Oxygen Saturation 95% 05/01/2025 11:27 AM CDT Inhaled Oxygen Concentration - - Weight 59.4 kg (131 lb) 05/01/2025 11:27 AM CDT Height 162.6 cm (5' 4) 05/01/2025 11:27 AM CDT Body Mass Index 22.49 05/01/2025 11:27 AM CDT Plan of Treatment Upcoming Encounters Date Type Department Care Team (Late st Contact Info) Description 10/30/2025 11:45 AM LEAD GENERATOR Telemedicine [facility] [address] [address] Josue Bangura MD [address] [place] [id number] Health Maintenance Due Date Last Done Comments DEXA Bone Density 1955 Hepatitis C Virus (HCV) Screening 1955 Cologuard 2002 Zoster Immunization (1 of 2) 2007 Immunochemical Fecal Occult Blood 05/05/2017 05/05/2016 Mammogram 07/18/2023 07/18/2022, 07/18/2022 Influenza Immunization (#1) 2025 10/0 09/2021, 06/14/2021, 05/30/2020, Additional history exists SARS-COV-2 Immunization ( season) 2025 09/14/2021, 01/01/2021, 12/11/2020 Colonoscopy 11/25/2028 11/25/2018 Colorectal Cancer Screening 11/25/2028 [...] patient's age to complete this topic Insurance Care Teams Welder Boilermaker Relationship Specialty Start Date End Date Alejandro Stanton [address] [place] [place] [id number] PCP - General Family Medicine 08/15/24
== END 2025-05-18 08:41 | disposition home or self-care (01) ==
PROVIDERS: PCP Emergency Medicine; Visit Provider Internal Medicine Cardiovascular Disease
DX: I50.1 Left ventricular failure, unspecified (principal)
CPT/HCPCS: 78452; 93017; A9502; J2785